=== PATIENT | male | born 1955 ===

== ENCOUNTER 2017-03-20 06:14 | Inpatient (IN) ==
[2017-03-20] MEDS ORDERED: GLUCAGON 1 MG VIAL IM PRN (07:41)
[2017-03-20] MEDS ORDERED: DEXTROSE 50% 25 GM/50 ML VIAL IV PRN (07:41)
[2017-03-20] MEDS ORDERED: SODIUM CHLORIDE 0.9% 1,000 ML IV PRN (07:50)
[2017-03-20] MEDS: LACTULOSE 20 GM/30 ML UDCUP PO SCH ×4 (08:07→20:49)
[2017-03-20] MEDS ORDERED: SODIUM BICARBONATE 50 MEQ/50 ML VIAL IV ONE ×2 (12:00→17:25)
[2017-03-20 12:08] LABS: PT Patient Result 10.1 SECS
[2017-03-20] MEDS ORDERED: SODIUM BICARB INJ 50 MEQ in DEXTROSE 5% 50 ML IV ONE (13:00)
[2017-03-20] MEDS ORDERED: POTASSIUM CHLORIDE 20 MEQ TABLET PO ONE (13:05)
[2017-03-20] MEDS ORDERED: ACETAMINOPHEN 325 MG TABLET PO PRN (13:07)
[2017-03-20] MEDS: PANTOPRAZOLE 40 MG TABLET PO SCH (13:30)
[2017-03-20] MEDS: CALCIUM (CARBONATE) 600 MG TABLET PO SCH ×2 (13:30→20:48)
[2017-03-20] MEDS ORDERED: PIPERACILLIN/TAZOBACTAM 3,375 MG in SODIUM CHLORIDE 0.9% 100 ML IV SCH (13:30)
[2017-03-20] MEDS: INSULIN LISPRO 100 UNIT/ML SUBCUT SCH ×3 (13:31→23:35)
[2017-03-20 14:07] LABS: Basophils % 0.1 % (0.0-0.8); Eosinophils % 0.1 % (0.00-10.9); Hematocrit 23.4 VOL% (42.0-52.0); Hemoglobin 7.4 GM/DL (14.0-18.0); Immature Granulocytes % 7.4 %; Immature Granulocytes Absolute 1.17 #; Lymphocytes # 0.8 10*3/uL (1.4-4.0); Mean Corpuscular HGB Conc 31.6 GM/DL (32-36); Mean Corpuscular Hemoglobin 34 PG (27-34); Mean Corpuscular Volume 105.9 FL (87-102); Mean Platelet Volume 12.2 FL (9.6-12.0); Monocytes # 0.5 10*3/uL (0.11-0.8); Monocytes % 3.2 % (1.7-12.7); NRBC # 0.33 10*3/uL; Neutrophils # 13.2 10*3/uL (1.4-7.4); Neutrophils % 84.2 % (38.7-73.9); Red Blood Count 2.21 MC/CUMM (3.8-5.5); Red Cell Distribution Width 14.7 % (9.3-17.3); White Blood Count 15.7 T/CUMM (4-12)
[2017-03-20 14:49] LABS: Albumin 3.7 G/DL (3.4-5.0); Bilirubin,Total 0.5 MG/DL (0.2-1.0); Osmolality,Calculated 317.2 MOS/KG (273-304); Total Protein 7.5 G/DL (6.4-8.3)
[2017-03-20 14:53] LABS: Calcium 5.6 MG/DL (8.5-10.1)
[2017-03-20 14:58] LABS: Platelet Count 44 T/CUMM (130-400)
[2017-03-20] MEDS ORDERED: INSULIN REGULAR 100 UNIT/ML IV ONE (15:03)
[2017-03-20] MEDS ORDERED: CALCIUM GLUCONATE 2,000 MG in SODIUM CHLORIDE 0.9% 100 ML IV ONE (15:03)
[2017-03-20] MEDS: SODIUM BICARBONATE 650 MG TABLET PO SCH ×2 (15:32→20:48)
[2017-03-20] MEDS: MIDODRINE 5 MG TABLET PO SCH ×2 (15:33→20:48)
[2017-03-20 16:08] LABS: ABG Base Excess -25.1 MMOL/L (-2.5-2.5); ABG HCO3 6.1 MMOL/L (20-26); ABG Oxygen Saturation 98.6 % (95-100); ABG TCO2 4.4 MMOL/L (23-27); Allen Test Positive
[2017-03-20 16:12] LABS: ABG PH 7.016 (7.35-7.45)
[2017-03-20 16:13] LABS: ABG PCO2 16.8 MM HG (35-48)
[2017-03-20] MEDS ORDERED: SODIUM POLYSTYRENE SULFATE 15 GM/60 ML BOTTLE PO STA (16:32)
[2017-03-20] MEDS ORDERED: SODIUM BICARB INJ 50 MEQ in DEXTROSE 5% 50 ML IV SCH (18:00)
[2017-03-20] MEDS: NEOMYCIN/POLYMYXIN/HC OTIC SOLN 10 ML BOTTLE BOTH EARS SCH (20:49)
[2017-03-20 21:30] LABS: Burr Cells 1+; Platelet Estimate Decreased; Poikilocytosis 1+
[2017-03-20] MEDS: INSULIN GLARGINE 100 UNIT/ML SUBCUT SCH (23:36)
[2017-03-21] MEDS ORDERED: SODIUM BICARB INJ 50 MEQ in DEXTROSE 5% 50 ML IV SCH
[2017-03-21] MEDS: LACTULOSE 20 GM/30 ML UDCUP PO SCH ×6 (00:19→23:53)
[2017-03-21] MEDS: PIPERACILLIN/TAZOBACTAM 3,375 MG in SODIUM CHLORIDE 0.9% 100 ML IV SCH ×2 (04:28→18:24)
[2017-03-21 06:21] LABS: Basophils % 0.1 % (0.0-0.8); Eosinophils % 0.1 % (0.00-10.9); Hematocrit 20.5 VOL% (42.0-52.0); Hemoglobin 6.9 GM/DL (14.0-18.0); Immature Granulocytes % 1.7 %; Immature Granulocytes Absolute 0.22 #; Lymphocytes # 0.7 10*3/uL (1.4-4.0); Lymphocytes % 5.2 % (21.2-54.2); Mean Corpuscular HGB Conc 33.7 GM/DL (32-36); Mean Corpuscular Hemoglobin 33 PG (27-34); Mean Corpuscular Volume 97.2 FL (87-102); Mean Platelet Volume 11.9 FL (9.6-12.0); Monocytes # 0.8 10*3/uL (0.11-0.8); Monocytes % 6.3 % (1.7-12.7); NRBC # 0.22 10*3/uL; Neutrophils # 11.2 10*3/uL (1.4-7.4); Neutrophils % 86.6 % (38.7-73.9); Platelet Count 58 T/CUMM (130-400); Red Blood Count 2.11 MC/CUMM (3.8-5.5); Red Cell Distribution Width 14.4 % (9.3-17.3); White Blood Count 12.9 T/CUMM (4-12)
[2017-03-21 06:46] LABS: Calcium 6.3 MG/DL (8.5-10.1); Magnesium 3.6 MG/DL (1.8-2.4); Osmolality,Calculated 320.1 MOS/KG (273-304); Potassium 4.4 MMOL/L (3.5-5.1)
[2017-03-21 06:50] LABS: Burr Cells Slight; Elliptocytes Few; Giant Platelets Few; Hypochromasia 1+; Platelet Estimate Decreased
[2017-03-21] MEDS: INSULIN LISPRO 100 UNIT/ML SUBCUT SCH ×4 (08:17→21:37)
[2017-03-21] MEDS: CALCIUM (CARBONATE) 600 MG TABLET PO SCH ×2 (08:40→23:54)
[2017-03-21] MEDS: SODIUM BICARBONATE 650 MG TABLET PO SCH ×3 (08:41→23:54)
[2017-03-21] MEDS: PANTOPRAZOLE 40 MG TABLET PO SCH (08:42)
[2017-03-21] MEDS: MIDODRINE 5 MG TABLET PO SCH ×3 (08:42→23:54)
[2017-03-21] MEDS: NEOMYCIN/POLYMYXIN/HC OTIC SOLN 10 ML BOTTLE BOTH EARS SCH ×2 (08:43→23:54)
[2017-03-21] MEDS ORDERED: LORazepam 2 MG/1 ML VIAL IM ONE (14:37)
[2017-03-21 15:58] LABS: Hematocrit 23.8 VOL% (42.0-52.0); Hemoglobin 8.5 GM/DL (14.0-18.0)
[2017-03-21 17:29] LABS: ABG Base Excess -3.4 MMOL/L (-2.5-2.5); ABG HCO3 19.8 MMOL/L (20-26); ABG Oxygen Saturation 97.1 % (95-100); ABG PH 7.452 (7.35-7.45); ABG PO2 99.3 MM HG (80-95); ABG TCO2 20.7 MMOL/L (23-27)
[2017-03-21 18:28] LABS: Calcium 7.4 MG/DL (8.5-10.1); Osmolality,Calculated 288.8 MOS/KG (273-304)
[2017-03-21] MEDS: INSULIN GLARGINE 100 UNIT/ML SUBCUT SCH (21:37)
[2017-03-22] MEDS: LACTULOSE 20 GM/30 ML UDCUP PO SCH ×5 (01:14→17:07)
[2017-03-22] MEDS: PIPERACILLIN/TAZOBACTAM 3,375 MG in SODIUM CHLORIDE 0.9% 100 ML IV SCH ×2 (03:58→17:07)
[2017-03-22] MEDS: ONDANSETRON 4 MG/2 ML VIAL IV PRN ×4 (04:21→17:18)
[2017-03-22 04:44] LABS: Basophils % 0.1 % (0.0-0.8); Hematocrit 22.5 VOL% (42.0-52.0); Hemoglobin 7.9 GM/DL (14.0-18.0); Immature Granulocytes % 0.9 %; Immature Granulocytes Absolute 0.08 #; Lymphocytes % 11.2 % (21.2-54.2); Mean Corpuscular HGB Conc 35.1 GM/DL (32-36); Mean Corpuscular Hemoglobin 32 PG (27-34); Mean Corpuscular Volume 91.8 FL (87-102); Mean Platelet Volume 12.1 FL (9.6-12.0); Monocytes # 0.9 10*3/uL (0.11-0.8); Monocytes % 9.7 % (1.7-12.7); NRBC # 0.05 10*3/uL; Neutrophils # 6.8 10*3/uL (1.4-7.4); Neutrophils % 78.1 % (38.7-73.9); Platelet Count 73 T/CUMM (130-400); Red Blood Count 2.45 MC/CUMM (3.8-5.5); Red Cell Distribution Width 15.9 % (9.3-17.3); White Blood Count 8.7 T/CUMM (4-12)
[2017-03-22 05:07] LABS: Calcium 6.9 MG/DL (8.5-10.1); Osmolality,Calculated 298.8 MOS/KG (273-304); Potassium 3.2 MMOL/L (3.5-5.1)
[2017-03-22] MEDS ORDERED: SODIUM CHLORIDE 0.9% 1,000 ML IV PRN (08:14)
[2017-03-22] MEDS: INSULIN LISPRO 100 UNIT/ML SUBCUT SCH ×3 (09:00→17:07)
[2017-03-22] MEDS: CALCIUM (CARBONATE) 600 MG TABLET PO SCH (09:00)
[2017-03-22] MEDS: MIDODRINE 5 MG TABLET PO SCH ×2 (09:01→16:12)
[2017-03-22] MEDS: PANTOPRAZOLE 40 MG TABLET PO SCH (09:01)
[2017-03-22] MEDS: NEOMYCIN/POLYMYXIN/HC OTIC SOLN 10 ML BOTTLE BOTH EARS SCH (09:01)
[2017-03-22] MEDS: SODIUM BICARBONATE 650 MG TABLET PO SCH ×2 (09:01→16:12)
[2017-03-22] MEDS ORDERED: HEPARIN LOCK FLUSH 500 UNIT/5 ML SYRINGE IV ONE (16:35)
[2017-03-22 16:54] VITALS: BP 157/70
== END 2017-03-22 18:55 | disposition home or self-care (01) | DRG 460 ==
LOC: N.EDINP 06:14 → N.ED 06:14 → SUATTDRO 07:23 → N.EDINP 09:57 → N.4E 10:18 → N.SDSINP 10:18
PROVIDERS: ADMIT Internal Medicine; ATTEND Internal Medicine

== ENCOUNTER 2017-11-29 06:05 | Inpatient (IN) ==
[2017-11-29 06:47] LABS: Hemoglobin 11.1 GM/DL (14.0-18.0)
[2017-11-29] MEDS ORDERED: INSULIN REGULAR 100 UNIT/ML SUBCUT ONE ×2 (07:18→15:58)
[2017-11-29] MEDS ORDERED: INSULIN REGULAR 100 UNIT/ML ONE (07:38)
[2017-11-29] MEDS: SODIUM CHLORIDE 0.9% 250 ML IV SCH ×2 (07:45→14:12)
[2017-11-29] MEDS ORDERED: SODIUM CHLORIDE 0.9% 75 ML IV ONE (10:15)
[2017-11-29] MEDS ORDERED: MIDODRINE 5 MG TABLET PO STA (10:55)
[2017-11-29] MEDS ORDERED: SODIUM CHLORIDE 0.9% 500 ML IV ONE (11:29)
[2017-11-29] MEDS ORDERED: GLUCAGON 1 MG VIAL IM PRN (11:35)
[2017-11-29] MEDS ORDERED: DOCUSATE SODIUM 100 MG CAPSULE PO PRN (11:35)
[2017-11-29] MEDS ORDERED: ONDANSETRON 4 MG/2 ML VIAL IV PRN (11:35)
[2017-11-29] MEDS ORDERED: DEXTROSE 50% 25 GM/50 ML VIAL IV PRN (11:35)
[2017-11-29] MEDS: SEVELAMER CARBONATE 800 MG TABLET PO SCH ×2 (12:08→16:26)
[2017-11-29 12:29] LABS: Basophils # 0.1 10*3/uL (0.0-0.2); Basophils % 0.6 % (0.0-0.8); Eosinophils # 0.1 10*3/uL (0.0-0.87); Eosinophils % 1.1 % (0.00-10.9); Hematocrit 31.2 VOL% (42.0-52.0); Immature Granulocytes % 0.7 %; Immature Granulocytes Absolute 0.07 #; Lymphocytes # 1.9 10*3/uL (1.4-4.0); Lymphocytes % 19.4 % (21.2-54.2); Mean Corpuscular HGB Conc 32.1 GM/DL (32-36); Mean Corpuscular Hemoglobin 31 PG (27-34); Mean Corpuscular Volume 97.8 FL (87-102); Mean Platelet Volume 9.9 FL (9.6-12.0); Monocytes # 0.6 10*3/uL (0.11-0.8); Neutrophils # 6.9 10*3/uL (1.4-7.4); Neutrophils % 72.2 % (38.7-73.9); Platelet Count 362 T/CUMM (130-400); Red Blood Count 3.19 MC/CUMM (3.8-5.5); Red Cell Distribution Width 13.8 % (9.3-17.3); White Blood Count 9.6 T/CUMM (4-12)
[2017-11-29 12:51] LABS: Bilirubin,Total 0.4 MG/DL (0.2-1.0); Calcium 8.5 MG/DL (8.5-10.1); Osmolality,Calculated 288.9 MOS/KG (273-304); Potassium 4.7 MMOL/L (3.5-5.1); Total Protein 8.7 G/DL (6.4-8.3)
[2017-11-29] MEDS: ACETAMINOPHEN 325 MG TABLET PO PRN (13:51)
[2017-11-29] MEDS: MIDODRINE 5 MG TABLET PO SCH ×2 (15:36→20:33)
[2017-11-29] MEDS: INSULIN REGULAR 100 UNIT/ML SUBCUT SCH ×2 (15:36→20:28)
[2017-11-29] MEDS ORDERED: SODIUM BICARBONATE 50 MEQ/50 ML SYRINGE IV ONE (15:55)
[2017-11-29] MEDS: SODIUM BICARBONATE 650 MG TABLET PO SCH ×2 (16:26→20:33)
[2017-11-29] MEDS: INSULIN GLARGINE 100 UNIT/ML SUBCUT SCH (20:29)
[2017-11-30 04:48] LABS: Basophils # 0.1 10*3/uL (0.0-0.2); Basophils % 0.7 % (0.0-0.8); Eosinophils # 0.1 10*3/uL (0.0-0.87); Eosinophils % 1.2 % (0.00-10.9); Hematocrit 32.3 VOL% (42.0-52.0); Hemoglobin 10.4 GM/DL (14.0-18.0); Immature Granulocytes % 0.6 %; Immature Granulocytes Absolute 0.06 #; Lymphocytes # 2.5 10*3/uL (1.4-4.0); Lymphocytes % 23.4 % (21.2-54.2); Mean Corpuscular HGB Conc 32.2 GM/DL (32-36); Mean Corpuscular Hemoglobin 31 PG (27-34); Mean Corpuscular Volume 95.3 FL (87-102); Mean Platelet Volume 10.6 FL (9.6-12.0); Monocytes # 0.6 10*3/uL (0.11-0.8); Monocytes % 5.2 % (1.7-12.7); Neutrophils # 7.2 10*3/uL (1.4-7.4); Neutrophils % 68.9 % (38.7-73.9); Platelet Count 400 T/CUMM (130-400); Red Blood Count 3.39 MC/CUMM (3.8-5.5); White Blood Count 10.5 T/CUMM (4-12)
[2017-11-30 05:11] LABS: Albumin 3.3 G/DL (3.4-5.0); Bilirubin,Total 0.6 MG/DL (0.2-1.0); Osmolality,Calculated 290.7 MOS/KG (273-304); Potassium 4.8 MMOL/L (3.5-5.1); Total Protein 9.2 G/DL (6.4-8.3)
[2017-11-30] MEDS ORDERED: ceFAZolin 1,000 MG in SYRINGE 1 EACH IV ONE (06:30)
[2017-11-30] MEDS: ACETAMINOPHEN 325 MG TABLET PO PRN ×3 (08:11→20:21)
[2017-11-30] MEDS: MIDODRINE 5 MG TABLET PO SCH ×3 (08:11→20:21)
[2017-11-30] MEDS: INSULIN REGULAR 100 UNIT/ML SUBCUT SCH ×4 (09:32→20:23)
[2017-11-30] MEDS: SEVELAMER CARBONATE 800 MG TABLET PO SCH ×3 (09:32→16:12)
[2017-11-30] MEDS: INSULIN NPH 100 UNIT/ML SUBCUT SCH ×3 (09:32→16:12)
[2017-11-30] MEDS ORDERED: HEPARIN 5,000 UNIT/1 ML VIAL ONE (09:40)
[2017-11-30] MEDS ORDERED: BUPIVACAINE 0.25% /EPI 10 ML VIAL ONE (09:40)
[2017-11-30] MEDS ORDERED: LIDOCAINE 1%/EPI INJ 20 ML VIAL ONE (09:41)
[2017-11-30] MEDS ORDERED: PROPOFOL 200 MG/20 ML VIAL IV ONE (12:50)
[2017-11-30] MEDS ORDERED: fentaNYL 100 MCG/2 ML VIAL ONE (12:50)
[2017-11-30] MEDS ORDERED: KETAMINE 500 MG/10 ML VIAL ONE (12:51)
[2017-11-30] MEDS ORDERED: SODIUM CHLORIDE 0.9% 250 ML IV ONE (12:51)
[2017-11-30] MEDS ORDERED: MIDAZOLAM 2 MG/2 ML VIAL ONE (12:52)
[2017-11-30] MEDS: PANTOPRAZOLE 40 MG TABLET PO SCH (16:12)
[2017-11-30] MEDS: SODIUM BICARBONATE 650 MG TABLET PO SCH ×2 (16:12→20:21)
[2017-11-30] MEDS ORDERED: HYDROCORTISONE 100 MG VIAL IV ONE (16:29)
[2017-11-30] MEDS: INSULIN GLARGINE 100 UNIT/ML SUBCUT SCH (20:24)
[2017-12-01] MEDS: ACETAMINOPHEN 325 MG TABLET PO PRN ×3 (00:22→16:44)
[2017-12-01] MEDS: HYDROCORTISONE 100 MG VIAL IV SCH ×3 (00:24→16:42)
[2017-12-01] MEDS: MIDODRINE 5 MG TABLET PO SCH ×4 (02:21→21:26)
[2017-12-01 05:34] LABS: Basophils % 0.1 % (0.0-0.8); Hematocrit 28.3 VOL% (42.0-52.0); Hemoglobin 8.9 GM/DL (14.0-18.0); Immature Granulocytes % 0.7 %; Lymphocytes # 1.3 10*3/uL (1.4-4.0); Lymphocytes % 8.3 % (21.2-54.2); Mean Corpuscular HGB Conc 31.4 GM/DL (32-36); Mean Corpuscular Hemoglobin 31 PG (27-34); Mean Corpuscular Volume 98.3 FL (87-102); Mean Platelet Volume 10.7 FL (9.6-12.0); Monocytes # 0.1 10*3/uL (0.11-0.8); Monocytes % 0.9 % (1.7-12.7); Neutrophils # 13.7 10*3/uL (1.4-7.4); Platelet Count 338 T/CUMM (130-400); Red Blood Count 2.88 MC/CUMM (3.8-5.5); Red Cell Distribution Width 13.8 % (9.3-17.3); White Blood Count 15.2 T/CUMM (4-12)
[2017-12-01 05:58] LABS: Albumin 3.2 G/DL (3.4-5.0); Bilirubin,Total 0.7 MG/DL (0.2-1.0); Calcium 8.5 MG/DL (8.5-10.1); Osmolality,Calculated 293.5 MOS/KG (273-304); Potassium 4.4 MMOL/L (3.5-5.1); Total Protein 8.6 G/DL (6.4-8.3)
[2017-12-01] MEDS: INSULIN REGULAR 100 UNIT/ML SUBCUT SCH ×4 (08:53→21:26)
[2017-12-01] MEDS: SEVELAMER CARBONATE 800 MG TABLET PO SCH ×3 (08:54→16:42)
[2017-12-01] MEDS: INSULIN NPH 100 UNIT/ML SUBCUT SCH ×3 (08:54→16:41)
[2017-12-01] MEDS: PANTOPRAZOLE 40 MG TABLET PO SCH (08:55)
[2017-12-01] MEDS: SODIUM BICARBONATE 650 MG TABLET PO SCH ×2 (08:55→21:26)
[2017-12-01] MEDS ORDERED: SODIUM CHLORIDE 0.9% 250 ML IV ONE (15:25)
[2017-12-01] MEDS: INSULIN GLARGINE 100 UNIT/ML SUBCUT SCH (21:27)
[2017-12-02] MEDS: HYDROCORTISONE 100 MG VIAL IV SCH ×3 (02:02→15:19)
[2017-12-02] MEDS: MIDODRINE 5 MG TABLET PO SCH ×4 (02:02→21:17)
[2017-12-02 03:58] LABS: Basophils % 0.2 % (0.0-0.8); Eosinophils % 0.1 % (0.00-10.9); Hematocrit 26.9 VOL% (42.0-52.0); Hemoglobin 8.7 GM/DL (14.0-18.0); Immature Granulocytes % 0.9 %; Immature Granulocytes Absolute 0.13 #; Lymphocytes # 2.6 10*3/uL (1.4-4.0); Lymphocytes % 18.4 % (21.2-54.2); Mean Corpuscular HGB Conc 32.3 GM/DL (32-36); Mean Corpuscular Hemoglobin 31 PG (27-34); Mean Corpuscular Volume 94.7 FL (87-102); Mean Platelet Volume 10.6 FL (9.6-12.0); Monocytes # 0.9 10*3/uL (0.11-0.8); Monocytes % 6.3 % (1.7-12.7); Neutrophils # 10.3 10*3/uL (1.4-7.4); Neutrophils % 74.1 % (38.7-73.9); Platelet Count 280 T/CUMM (130-400); Red Blood Count 2.84 MC/CUMM (3.8-5.5); Red Cell Distribution Width 14.2 % (9.3-17.3); White Blood Count 13.9 T/CUMM (4-12)
[2017-12-02 04:22] LABS: Calcium 8.2 MG/DL (8.5-10.1); Osmolality,Calculated 289.7 MOS/KG (273-304); Potassium 3.5 MMOL/L (3.5-5.1)
[2017-12-02] MEDS: INSULIN NPH 100 UNIT/ML SUBCUT SCH ×3 (07:51→17:01)
[2017-12-02] MEDS: INSULIN REGULAR 100 UNIT/ML SUBCUT SCH ×4 (07:51→21:17)
[2017-12-02] MEDS: PANTOPRAZOLE 40 MG TABLET PO SCH (08:33)
[2017-12-02] MEDS: SODIUM BICARBONATE 650 MG TABLET PO SCH ×2 (08:33→21:16)
[2017-12-02] MEDS: SEVELAMER CARBONATE 800 MG TABLET PO SCH ×3 (08:33→17:01)
[2017-12-02] MEDS: ACETAMINOPHEN 325 MG TABLET PO PRN ×3 (10:17→21:16)
[2017-12-02] MEDS: INSULIN GLARGINE 100 UNIT/ML SUBCUT SCH (21:17)
[2017-12-03] MEDS: ACETAMINOPHEN 325 MG TABLET PO PRN ×4 (00:28→21:03)
[2017-12-03] MEDS: HYDROCORTISONE 100 MG VIAL IV SCH ×4 (00:28→21:04)
[2017-12-03] MEDS: MIDODRINE 5 MG TABLET PO SCH ×4 (01:55→21:03)
[2017-12-03 07:04] LABS: Basophils % 0.1 % (0.0-0.8); Eosinophils % 0.1 % (0.00-10.9); Hematocrit 25.3 VOL% (42.0-52.0); Hemoglobin 8.1 GM/DL (14.0-18.0); Immature Granulocytes % 0.7 %; Lymphocytes # 1.4 10*3/uL (1.4-4.0); Lymphocytes % 9.7 % (21.2-54.2); Mean Corpuscular Hemoglobin 30 PG (27-34); Mean Corpuscular Volume 94.8 FL (87-102); Mean Platelet Volume 10.6 FL (9.6-12.0); Monocytes # 0.4 10*3/uL (0.11-0.8); Neutrophils # 12.8 10*3/uL (1.4-7.4); Neutrophils % 86.4 % (38.7-73.9); Platelet Count 323 T/CUMM (130-400); Red Blood Count 2.67 MC/CUMM (3.8-5.5); Red Cell Distribution Width 14.1 % (9.3-17.3); White Blood Count 14.8 T/CUMM (4-12)
[2017-12-03 07:17] LABS: Calcium 8.2 MG/DL (8.5-10.1); Potassium 3.6 MMOL/L (3.5-5.1)
[2017-12-03] MEDS: SODIUM BICARBONATE 650 MG TABLET PO SCH ×2 (08:14→21:03)
[2017-12-03] MEDS: PANTOPRAZOLE 40 MG TABLET PO SCH (08:14)
[2017-12-03] MEDS: SEVELAMER CARBONATE 800 MG TABLET PO SCH ×3 (08:14→16:42)
[2017-12-03] MEDS: INSULIN REGULAR 100 UNIT/ML SUBCUT SCH ×4 (08:22→21:03)
[2017-12-03] MEDS: INSULIN NPH 100 UNIT/ML SUBCUT SCH ×3 (08:22→16:43)
[2017-12-03] MEDS: INSULIN GLARGINE 100 UNIT/ML SUBCUT SCH (21:03)
[2017-12-04] MEDS: MIDODRINE 5 MG TABLET PO SCH ×2 (01:57→08:35)
[2017-12-04] MEDS: SODIUM BICARBONATE 650 MG TABLET PO SCH (08:35)
[2017-12-04] MEDS: SEVELAMER CARBONATE 800 MG TABLET PO SCH ×2 (08:35→13:55)
[2017-12-04] MEDS: ACETAMINOPHEN 325 MG TABLET PO PRN (08:36)
[2017-12-04] MEDS: INSULIN NPH 100 UNIT/ML SUBCUT SCH ×2 (08:36→12:43)
[2017-12-04] MEDS: PANTOPRAZOLE 40 MG TABLET PO SCH (08:36)
[2017-12-04] MEDS: HYDROCORTISONE 100 MG VIAL IV SCH (08:36)
[2017-12-04] MEDS: INSULIN REGULAR 100 UNIT/ML SUBCUT SCH ×2 (08:40→12:43)
[2017-12-04 12:00] VITALS: BP 116/60
== END 2017-12-04 14:43 | disposition home or self-care (01) | DRG 182 ==
LOC: N.OR 06:05 → N.SDSINP 06:10 → SUATTDRO 11:10 → N.CC 11:44 → N.2E 12-02 18:26
PROVIDERS: ADMIT Surgery; ATTEND Internal Medicine

== ENCOUNTER 2017-12-22 17:29 | Inpatient (IN) ==
[2017-12-22] MEDS ORDERED: GLUCAGON 1 MG VIAL IM PRN (18:22)
[2017-12-22] MEDS ORDERED: DEXTROSE 50% 25 GM/50 ML VIAL IV PRN (18:22)
[2017-12-22] MEDS ORDERED: ONDANSETRON 4 MG/2 ML VIAL IV PRN (18:22)
[2017-12-22] MEDS ORDERED: MORPHINE 4 MG/1 ML VIAL IV PRN (18:22)
[2017-12-22] MEDS ORDERED: SODIUM CHLORIDE 0.9% 1,000 ML IV SCH (18:30)
[2017-12-22 19:18] LABS: Basophils # 0.1 10*3/uL (0.0-0.2); Basophils % 0.2 % (0.0-0.8); Eosinophils # 0.1 10*3/uL (0.0-0.87); Eosinophils % 0.4 % (0.00-10.9); Hematocrit 22.5 VOL% (42.0-52.0); Hemoglobin 7.5 GM/DL (14.0-18.0); Immature Granulocytes % 2.1 %; Immature Granulocytes Absolute 0.62 #; Lymphocytes # 1.2 10*3/uL (1.4-4.0); Lymphocytes % 3.9 % (21.2-54.2); Mean Corpuscular HGB Conc 33.3 GM/DL (32-36); Mean Corpuscular Hemoglobin 31 PG (27-34); Mean Corpuscular Volume 93.8 FL (87-102); Mean Platelet Volume 10.7 FL (9.6-12.0); Monocytes # 1.4 10*3/uL (0.11-0.8); Monocytes % 4.6 % (1.7-12.7); NRBC # 0.05 10*3/uL; Neutrophils # 26.8 10*3/uL (1.4-7.4); Neutrophils % 88.8 % (38.7-73.9); Platelet Count 426 T/CUMM (130-400); Red Cell Distribution Width 13.4 % (9.3-17.3); White Blood Count 30.2 T/CUMM (4-12)
[2017-12-22 19:34] LABS: Alanine Aminotransferase < 9 U/L (16-61); Albumin 2.4 G/DL (3.4-5.0); Alkaline Phosphatase 171 U/L (45-117); Aspartate Amino Transferase 4 U/L (0-37); Blood Urea Nitrogen 59 MG/DL (7-18); Calcium 8.2 MG/DL (8.5-10.1); Glucose 177 MG/DL (74-106); Osmolality,Calculated 277.1 MOS/KG (273-304); Potassium 3.5 MMOL/L (3.5-5.1); Sodium 128 MMOL/L (136-145)
[2017-12-22 19:43] LABS: INR 1.1; PT Patient Result 11.2 SECS
[2017-12-22 19:53] LABS: Band Neutrophils 1 % (0-10); Lymphocytes 1 % (20-55); Segmented Neutrophils 96 % (50-85); Total Cells Counted 100
[2017-12-22 19:54] LABS: Anisocytosis 1+; Macrocytosis 1+; Platelet Estimate Adequate; Polychromasia Slight
[2017-12-22] MEDS ORDERED: VANCOMYCIN INJ 500 MG in SODIUM CHLORIDE 0.9% 100 ML IV PRN (20:38)
[2017-12-22] MEDS ORDERED: VANCOMYCIN INJ 1,250 MG in SODIUM CHLORIDE 0.9% 250 ML IV ONE (21:00)
[2017-12-22] MEDS: INSULIN LISPRO 100 UNIT/ML SUBCUT SCH (22:10)
[2017-12-22] MEDS: ENOXAPARIN 30 MG/0.3 ML SYRINGE SUBCUT SCH (22:13)
[2017-12-23 06:13] LABS: Osmolality,Calculated 283.1 MOS/KG (273-304); Potassium 3.5 MMOL/L (3.5-5.1); Risk Ratio 3.7; VLDL CHOLESTEROL 22.6 MG/DL
[2017-12-23 06:26] LABS: Basophils % 0.1 % (0.0-0.8); Eosinophils # 0.2 10*3/uL (0.0-0.87); Eosinophils % 0.6 % (0.00-10.9); Hematocrit 20.5 VOL% (42.0-52.0); Hemoglobin 6.6 GM/DL (14.0-18.0); Immature Granulocytes % 1.4 %; Immature Granulocytes Absolute 0.35 #; Lymphocytes # 1.4 10*3/uL (1.4-4.0); Lymphocytes % 5.7 % (21.2-54.2); Mean Corpuscular HGB Conc 32.2 GM/DL (32-36); Mean Corpuscular Hemoglobin 31 PG (27-34); Mean Corpuscular Volume 95.3 FL (87-102); Mean Platelet Volume 10.3 FL (9.6-12.0); Monocytes % 3.8 % (1.7-12.7); NRBC # 0.08 10*3/uL; Neutrophils # 22.5 10*3/uL (1.4-7.4); Neutrophils % 88.4 % (38.7-73.9); Platelet Count 424 T/CUMM (130-400); Red Blood Count 2.15 MC/CUMM (3.8-5.5); Red Cell Distribution Width 13.6 % (9.3-17.3); White Blood Count 25.4 T/CUMM (4-12)
[2017-12-23 06:45] LABS: Eosinophils 1 % (0-10); Hypochromasia 1+; Lymphocytes 2 % (20-55); Ovalocytes Slight; Platelet Estimate Adequate; Segmented Neutrophils 95 % (50-85); Total Cells Counted 100
[2017-12-23 06:46] LABS: Macrocytosis Slight; Polychromasia Slight
[2017-12-23] MEDS: INSULIN LISPRO 100 UNIT/ML SUBCUT SCH ×4 (07:52→20:41)
[2017-12-23] MEDS: PANTOPRAZOLE 40 MG TABLET PO SCH (08:18)
[2017-12-23] MEDS ORDERED: SODIUM CHLORIDE 0.9% 1,000 ML IV PRN (10:42)
[2017-12-23] MEDS ORDERED: BUPIVACAINE MPF 0.25% 30 ML VIAL ONE (11:44)
[2017-12-23] MEDS ORDERED: GLUCAGON 1 MG VIAL IM PRN (13:25)
[2017-12-23] MEDS ORDERED: DEXTROSE 50% 25 GM/50 ML VIAL IV PRN (13:25)
[2017-12-23] MEDS ORDERED: MORPHINE 4 MG/1 ML VIAL IV PRN ×2 (13:27→13:32)
[2017-12-23] MEDS ORDERED: PROPOFOL 200 MG/20 ML VIAL IV ONE (13:43)
[2017-12-23] MEDS ORDERED: SEVOFLURANE 1 UNIT/15 MINUTE INH ONE (13:44)
[2017-12-23] MEDS ORDERED: DEXAMETHASONE 10 MG/1 ML VIAL ONE (13:44)
[2017-12-23] MEDS ORDERED: fentaNYL 100 MCG/2 ML VIAL ONE (13:44)
[2017-12-23] MEDS ORDERED: MIDAZOLAM 2 MG/2 ML VIAL ONE (13:44)
[2017-12-23] MEDS ORDERED: ONDANSETRON 4 MG/2 ML VIAL ONE (13:45)
[2017-12-23] MEDS ORDERED: PHENYLEPHRINE 1 MG/10 ML SYRINGE IV ONE (13:45)
[2017-12-23] MEDS ORDERED: SODIUM CHLORIDE 0.9% 500 ML IV ONE (13:45)
[2017-12-23] MEDS ORDERED: KETOROLAC 30 MG/1 ML VIAL ONE (13:45)
[2017-12-23] MEDS ORDERED: ETOMIDATE 40 MG/20 ML VIAL IV ONE (13:48)
[2017-12-23] MEDS: AMPICILLIN/SULBACTAM 1,500 MG in SODIUM CHLORIDE 0.9% 100 ML IV SCH ×2 (14:34→22:10)
[2017-12-23] MEDS: MIDODRINE 5 MG TABLET PO SCH ×2 (14:34→19:05)
[2017-12-23] MEDS ORDERED: INSULIN REGULAR 100 UNIT/ML SUBCUT SCH (16:30)
[2017-12-23] MEDS ORDERED: INSULIN NPH 100 UNIT/ML SUBCUT SCH (16:30)
[2017-12-23] MEDS: SEVELAMER CARBONATE 800 MG TABLET PO SCH (16:37)
[2017-12-23] MEDS: oxyCODONE/ACETAMINOPHEN 5-325 MG TABLET PO PRN (17:04)
[2017-12-23] MEDS: INSULIN GLARGINE 100 UNIT/ML SUBCUT SCH (20:42)
[2017-12-23] MEDS: ENOXAPARIN 30 MG/0.3 ML SYRINGE SUBCUT SCH (20:42)
[2017-12-23] MEDS: SODIUM BICARBONATE 650 MG TABLET PO SCH (20:43)
[2017-12-23] MEDS: DOCUSATE SODIUM 100 MG CAPSULE PO SCH (20:44)
[2017-12-23] MEDS: NEOMYCIN/POLYMYXIN/HC OTIC SOLN 10 ML BOTTLE BOTH EARS SCH (20:44)
[2017-12-24] MEDS: MIDODRINE 5 MG TABLET PO SCH ×5 (00:15→23:44)
[2017-12-24] MEDS: oxyCODONE/ACETAMINOPHEN 5-325 MG TABLET PO PRN ×3 (00:15→23:44)
[2017-12-24] MEDS: AMPICILLIN/SULBACTAM 1,500 MG in SODIUM CHLORIDE 0.9% 100 ML IV SCH ×3 (06:20→20:31)
[2017-12-24 06:53] LABS: Basophils # 0.1 10*3/uL (0.0-0.2); Basophils % 0.2 % (0.0-0.8); Hematocrit 30.8 VOL% (42.0-52.0); Hemoglobin 9.9 GM/DL (14.0-18.0); Immature Granulocytes % 1.7 %; Immature Granulocytes Absolute 0.56 #; Lymphocytes # 0.9 10*3/uL (1.4-4.0); Lymphocytes % 2.7 % (21.2-54.2); Mean Corpuscular HGB Conc 32.1 GM/DL (32-36); Mean Corpuscular Hemoglobin 29 PG (27-34); Mean Platelet Volume 10.8 FL (9.6-12.0); Monocytes # 0.4 10*3/uL (0.11-0.8); Monocytes % 1.2 % (1.7-12.7); NRBC # 0.06 10*3/uL; Neutrophils # 30.8 10*3/uL (1.4-7.4); Neutrophils % 94.2 % (38.7-73.9); Platelet Count 494 T/CUMM (130-400); Red Blood Count 3.46 MC/CUMM (3.8-5.5); Red Cell Distribution Width 17.1 % (9.3-17.3); White Blood Count 32.7 T/CUMM (4-12)
[2017-12-24 07:11] LABS: Calcium 8.7 MG/DL (8.5-10.1); Osmolality,Calculated 293.5 MOS/KG (273-304); Potassium 3.9 MMOL/L (3.5-5.1)
[2017-12-24 07:15] LABS: Anisocytosis 1+; Band Neutrophils 14 % (0-10); Lymphocytes 6 % (20-55); Nucleated Red Blood Cells 1 (0-5); Platelet Estimate Increased; Segmented Neutrophils 78 % (50-85); Total Cells Counted 100
[2017-12-24 07:16] LABS: Macrocytosis 1+; Poikilocytosis Slight
[2017-12-24] MEDS: SEVELAMER CARBONATE 800 MG TABLET PO SCH ×3 (09:24→17:31)
[2017-12-24] MEDS: DOCUSATE SODIUM 100 MG CAPSULE PO SCH ×2 (09:24→20:33)
[2017-12-24] MEDS: INSULIN LISPRO 100 UNIT/ML SUBCUT SCH ×4 (09:24→20:32)
[2017-12-24] MEDS: SODIUM BICARBONATE 650 MG TABLET PO SCH ×2 (09:25→20:33)
[2017-12-24] MEDS: PANTOPRAZOLE 40 MG TABLET PO SCH (09:25)
[2017-12-24] MEDS: NEOMYCIN/POLYMYXIN/HC OTIC SOLN 10 ML BOTTLE BOTH EARS SCH ×3 (09:25→20:37)
[2017-12-24] MEDS ORDERED: VANCOMYCIN INJ 500 MG in SODIUM CHLORIDE 0.9% 100 ML IV ONE (18:00)
[2017-12-24] MEDS: INSULIN GLARGINE 100 UNIT/ML SUBCUT SCH (20:32)
[2017-12-24] MEDS: ENOXAPARIN 30 MG/0.3 ML SYRINGE SUBCUT SCH (20:33)
[2017-12-25] MEDS: AMPICILLIN/SULBACTAM 1,500 MG in SODIUM CHLORIDE 0.9% 100 ML IV SCH (05:35)
[2017-12-25] MEDS: oxyCODONE/ACETAMINOPHEN 5-325 MG TABLET PO PRN ×3 (05:41→23:43)
[2017-12-25 05:59] LABS: Basophils % 0.1 % (0.0-0.8); Hematocrit 27.7 VOL% (42.0-52.0); Hemoglobin 8.9 GM/DL (14.0-18.0); Immature Granulocytes % 1.9 %; Immature Granulocytes Absolute 0.47 #; Lymphocytes # 1.3 10*3/uL (1.4-4.0); Mean Corpuscular HGB Conc 32.1 GM/DL (32-36); Mean Corpuscular Hemoglobin 29 PG (27-34); Mean Corpuscular Volume 89.9 FL (87-102); Mean Platelet Volume 10.8 FL (9.6-12.0); Monocytes # 0.9 10*3/uL (0.11-0.8); Monocytes % 3.5 % (1.7-12.7); NRBC # 0.07 10*3/uL; Neutrophils # 22.7 10*3/uL (1.4-7.4); Neutrophils % 89.5 % (38.7-73.9); Platelet Count 429 T/CUMM (130-400); Red Blood Count 3.08 MC/CUMM (3.8-5.5); Red Cell Distribution Width 17.2 % (9.3-17.3); White Blood Count 25.3 T/CUMM (4-12)
[2017-12-25 06:22] LABS: Anisocytosis 1+; Band Neutrophils 6 % (0-10); Lymphocytes 8 % (20-55); Macrocytosis 1+; Platelet Estimate Normal; Polychromasia Slight; Segmented Neutrophils 81 % (50-85); Total Cells Counted 100
[2017-12-25 06:29] LABS: Calcium 8.2 MG/DL (8.5-10.1); Potassium 3.5 MMOL/L (3.5-5.1)
[2017-12-25] MEDS: MIDODRINE 5 MG TABLET PO SCH ×4 (06:40→23:42)
[2017-12-25] MEDS: NEOMYCIN/POLYMYXIN/HC OTIC SOLN 10 ML BOTTLE BOTH EARS SCH ×3 (08:53→21:11)
[2017-12-25] MEDS: PANTOPRAZOLE 40 MG TABLET PO SCH (08:53)
[2017-12-25] MEDS: SEVELAMER CARBONATE 800 MG TABLET PO SCH ×3 (08:53→16:40)
[2017-12-25] MEDS: DOCUSATE SODIUM 100 MG CAPSULE PO SCH ×2 (08:53→21:06)
[2017-12-25] MEDS: SODIUM BICARBONATE 650 MG TABLET PO SCH ×2 (08:53→21:06)
[2017-12-25] MEDS: INSULIN LISPRO 100 UNIT/ML SUBCUT SCH ×4 (08:53→21:07)
[2017-12-25] MEDS: ENOXAPARIN 30 MG/0.3 ML SYRINGE SUBCUT SCH (21:06)
[2017-12-25] MEDS: INSULIN GLARGINE 100 UNIT/ML SUBCUT SCH (21:07)
[2017-12-25] MEDS: MORPHINE 4 MG/1 ML VIAL IV PRN (21:08)
[2017-12-26] MEDS: MIDODRINE 5 MG TABLET PO SCH ×3 (05:55→18:30)
[2017-12-26] MEDS: INSULIN LISPRO 100 UNIT/ML SUBCUT SCH ×4 (06:59→20:43)
[2017-12-26] MEDS: DOCUSATE SODIUM 100 MG CAPSULE PO SCH ×2 (08:27→21:20)
[2017-12-26] MEDS: SEVELAMER CARBONATE 800 MG TABLET PO SCH ×3 (08:27→17:02)
[2017-12-26] MEDS: SODIUM BICARBONATE 650 MG TABLET PO SCH ×2 (08:28→21:20)
[2017-12-26] MEDS: PANTOPRAZOLE 40 MG TABLET PO SCH (08:28)
[2017-12-26] MEDS: NEOMYCIN/POLYMYXIN/HC OTIC SOLN 10 ML BOTTLE BOTH EARS SCH ×3 (08:28→21:21)
[2017-12-26] MEDS: oxyCODONE/ACETAMINOPHEN 5-325 MG TABLET PO PRN (14:14)
[2017-12-26] MEDS: INSULIN GLARGINE 100 UNIT/ML SUBCUT SCH (20:43)
[2017-12-26] MEDS: ENOXAPARIN 30 MG/0.3 ML SYRINGE SUBCUT SCH (21:20)
[2017-12-27] MEDS: MIDODRINE 5 MG TABLET PO SCH ×4 (00:09→17:30)
[2017-12-27] MEDS: ACETAMINOPHEN 325 MG TABLET PO PRN ×2 (01:37→08:14)
[2017-12-27 06:40] LABS: Basophils % 0.2 % (0.0-0.8); Eosinophils # 0.1 10*3/uL (0.0-0.87); Eosinophils % 0.6 % (0.00-10.9); Hematocrit 25.9 VOL% (42.0-52.0); Hemoglobin 8.2 GM/DL (14.0-18.0); Immature Granulocytes % 1.9 %; Immature Granulocytes Absolute 0.43 #; Lymphocytes # 1.7 10*3/uL (1.4-4.0); Lymphocytes % 7.2 % (21.2-54.2); Mean Corpuscular HGB Conc 31.7 GM/DL (32-36); Mean Corpuscular Hemoglobin 30 PG (27-34); Mean Corpuscular Volume 93.2 FL (87-102); Mean Platelet Volume 10.8 FL (9.6-12.0); Monocytes # 0.7 10*3/uL (0.11-0.8); Monocytes % 2.9 % (1.7-12.7); NRBC # 0.03 10*3/uL; Neutrophils # 20.1 10*3/uL (1.4-7.4); Neutrophils % 87.2 % (38.7-73.9); Platelet Count 419 T/CUMM (130-400); Red Blood Count 2.78 MC/CUMM (3.8-5.5); Red Cell Distribution Width 17.3 % (9.3-17.3)
[2017-12-27 07:11] LABS: Albumin 1.8 G/DL (3.4-5.0); Bilirubin,Total 0.5 MG/DL (0.2-1.0); Calcium 7.6 MG/DL (8.5-10.1); Osmolality,Calculated 286.4 MOS/KG (273-304); Potassium 4.5 MMOL/L (3.5-5.1); Total Protein 6.8 G/DL (6.4-8.3)
[2017-12-27 07:17] LABS: Eosinophils 2 % (0-10); Hypochromasia 1+; Lymphocytes 9 % (20-55); Macrocytosis Slight; Ovalocytes Slight; Platelet Estimate Adequate; Segmented Neutrophils 86 % (50-85); Total Cells Counted 100
[2017-12-27] MEDS: INSULIN LISPRO 100 UNIT/ML SUBCUT SCH ×4 (08:07→20:56)
[2017-12-27] MEDS: DOCUSATE SODIUM 100 MG CAPSULE PO SCH ×2 (08:14→20:51)
[2017-12-27] MEDS: SEVELAMER CARBONATE 800 MG TABLET PO SCH ×3 (08:14→17:10)
[2017-12-27] MEDS: SODIUM BICARBONATE 650 MG TABLET PO SCH ×2 (08:14→20:51)
[2017-12-27] MEDS: PANTOPRAZOLE 40 MG TABLET PO SCH (08:14)
[2017-12-27] MEDS: NEOMYCIN/POLYMYXIN/HC OTIC SOLN 10 ML BOTTLE BOTH EARS SCH ×3 (08:17→20:56)
[2017-12-27] MEDS: oxyCODONE/ACETAMINOPHEN 5-325 MG TABLET PO PRN ×2 (13:03→20:51)
[2017-12-27] MEDS ORDERED: VANCOMYCIN INJ 500 MG in SODIUM CHLORIDE 0.9% 100 ML IV ONE (16:00)
[2017-12-27] MEDS: PIPERACILLIN/TAZOBACTAM 3,375 MG in SODIUM CHLORIDE 0.9% 100 ML IV SCH (17:44)
[2017-12-27] MEDS: ENOXAPARIN 30 MG/0.3 ML SYRINGE SUBCUT SCH (20:51)
[2017-12-27] MEDS: INSULIN GLARGINE 100 UNIT/ML SUBCUT SCH (20:56)
[2017-12-28] MEDS: MIDODRINE 5 MG TABLET PO SCH ×4 (00:01→19:35)
[2017-12-28] MEDS: MORPHINE 4 MG/1 ML VIAL IV PRN ×2 (00:29→06:01)
[2017-12-28] MEDS: oxyCODONE/ACETAMINOPHEN 5-325 MG TABLET PO PRN ×2 (02:39→19:36)
[2017-12-28] MEDS: PIPERACILLIN/TAZOBACTAM 3,375 MG in SODIUM CHLORIDE 0.9% 100 ML IV SCH ×2 (05:50→19:37)
[2017-12-28] MEDS: SEVELAMER CARBONATE 800 MG TABLET PO SCH ×3 (08:06→17:26)
[2017-12-28] MEDS: INSULIN LISPRO 100 UNIT/ML SUBCUT SCH ×4 (08:07→21:39)
[2017-12-28] MEDS: DOCUSATE SODIUM 100 MG CAPSULE PO SCH ×2 (10:39→21:39)
[2017-12-28] MEDS: ACETAMINOPHEN 325 MG TABLET PO PRN ×2 (10:39→17:26)
[2017-12-28] MEDS: SODIUM BICARBONATE 650 MG TABLET PO SCH ×2 (10:39→21:38)
[2017-12-28] MEDS: PANTOPRAZOLE 40 MG TABLET PO SCH (10:40)
[2017-12-28] MEDS: NEOMYCIN/POLYMYXIN/HC OTIC SOLN 10 ML BOTTLE BOTH EARS SCH ×3 (10:40→21:45)
[2017-12-28] MEDS: INSULIN GLARGINE 100 UNIT/ML SUBCUT SCH (21:39)
[2017-12-28] MEDS: ENOXAPARIN 30 MG/0.3 ML SYRINGE SUBCUT SCH (21:41)
[2017-12-29] MEDS: MIDODRINE 5 MG TABLET PO SCH ×4 (00:16→18:23)
[2017-12-29] MEDS: ACETAMINOPHEN 325 MG TABLET PO PRN ×2 (00:23→20:09)
[2017-12-29] MEDS: oxyCODONE/ACETAMINOPHEN 5-325 MG TABLET PO PRN ×3 (05:22→17:36)
[2017-12-29] MEDS: PIPERACILLIN/TAZOBACTAM 3,375 MG in SODIUM CHLORIDE 0.9% 100 ML IV SCH ×2 (05:25→19:02)
[2017-12-29 07:42] LABS: Basophils % 0.1 % (0.0-0.8); Eosinophils # 0.2 10*3/uL (0.0-0.87); Eosinophils % 1.5 % (0.00-10.9); Hemoglobin 7.5 GM/DL (14.0-18.0); Immature Granulocytes % 2.4 %; Immature Granulocytes Absolute 0.39 #; Lymphocytes # 1.4 10*3/uL (1.4-4.0); Lymphocytes % 8.6 % (21.2-54.2); Mean Corpuscular HGB Conc 31.3 GM/DL (32-36); Mean Corpuscular Hemoglobin 29 PG (27-34); Mean Corpuscular Volume 92.3 FL (87-102); Mean Platelet Volume 10.4 FL (9.6-12.0); Monocytes # 0.9 10*3/uL (0.11-0.8); Monocytes % 5.4 % (1.7-12.7); NRBC # 0.02 10*3/uL; Neutrophils # 13.3 10*3/uL (1.4-7.4); Platelet Count 394 T/CUMM (130-400); Red Cell Distribution Width 17.2 % (9.3-17.3); White Blood Count 16.2 T/CUMM (4-12)
[2017-12-29 08:10] LABS: Alanine Aminotransferase < 9 U/L (16-61); Albumin 1.6 G/DL (3.4-5.0); Alkaline Phosphatase 283 U/L (45-117); Aspartate Amino Transferase 7 U/L (0-37); Blood Urea Nitrogen 50 MG/DL (7-18); Calcium 6.7 MG/DL (8.5-10.1); Glucose 87 MG/DL (74-106); Osmolality,Calculated 284.8 MOS/KG (273-304); Potassium 4.1 MMOL/L (3.5-5.1); Sodium 137 MMOL/L (136-145); Total Protein 6.3 G/DL (6.4-8.3)
[2017-12-29 09:34] LABS: Sedimentation Rate-Westergren 128 MM/HR (0-20)
[2017-12-29] MEDS: INSULIN LISPRO 100 UNIT/ML SUBCUT SCH ×4 (11:44→20:06)
[2017-12-29] MEDS: SEVELAMER CARBONATE 800 MG TABLET PO SCH ×3 (11:44→17:36)
[2017-12-29] MEDS: PANTOPRAZOLE 40 MG TABLET PO SCH (11:54)
[2017-12-29] MEDS: DOCUSATE SODIUM 100 MG CAPSULE PO SCH ×2 (11:54→20:05)
[2017-12-29] MEDS: NEOMYCIN/POLYMYXIN/HC OTIC SOLN 10 ML BOTTLE BOTH EARS SCH ×3 (11:54→20:05)
[2017-12-29] MEDS: SODIUM BICARBONATE 650 MG TABLET PO SCH ×2 (11:55→20:05)
[2017-12-29] MEDS ORDERED: VANCOMYCIN INJ 500 MG in SODIUM CHLORIDE 0.9% 100 ML IV ONE (16:00)
[2017-12-29] MEDS: INSULIN GLARGINE 100 UNIT/ML SUBCUT SCH (20:06)
[2017-12-29] MEDS: ENOXAPARIN 30 MG/0.3 ML SYRINGE SUBCUT SCH (20:08)
[2017-12-30] MEDS: MIDODRINE 5 MG TABLET PO SCH ×4 (00:43→17:42)
[2017-12-30] MEDS: PIPERACILLIN/TAZOBACTAM 3,375 MG in SODIUM CHLORIDE 0.9% 100 ML IV SCH ×2 (05:41→18:04)
[2017-12-30] MEDS: oxyCODONE/ACETAMINOPHEN 5-325 MG TABLET PO PRN ×2 (05:46→12:50)
[2017-12-30 05:58] LABS: Basophils % 0.2 % (0.0-0.8); Eosinophils # 0.2 10*3/uL (0.0-0.87); Eosinophils % 1.4 % (0.00-10.9); Hematocrit 25.9 VOL% (42.0-52.0); Hemoglobin 8.3 GM/DL (14.0-18.0); Immature Granulocytes % 1.9 %; Immature Granulocytes Absolute 0.28 #; Lymphocytes # 1.3 10*3/uL (1.4-4.0); Lymphocytes % 8.7 % (21.2-54.2); Mean Corpuscular Hemoglobin 29 PG (27-34); Mean Corpuscular Volume 90.6 FL (87-102); Mean Platelet Volume 10.5 FL (9.6-12.0); Monocytes % 6.4 % (1.7-12.7); Neutrophils # 12.1 10*3/uL (1.4-7.4); Neutrophils % 81.4 % (38.7-73.9); Platelet Count 405 T/CUMM (130-400); Red Blood Count 2.86 MC/CUMM (3.8-5.5); Red Cell Distribution Width 16.9 % (9.3-17.3); White Blood Count 14.9 T/CUMM (4-12)
[2017-12-30 06:27] LABS: Prealbumin 9.8 MG/DL (20-40)
[2017-12-30 06:36] LABS: Folate 6.4 NG/ML (5.4-24.0)
[2017-12-30 07:06] LABS: Albumin 1.8 G/DL (3.4-5.0); Bilirubin,Total 0.9 MG/DL (0.2-1.0); Calcium 7.8 MG/DL (8.5-10.1); Osmolality,Calculated 276.1 MOS/KG (273-304); Potassium 3.8 MMOL/L (3.5-5.1); Total Protein 6.7 G/DL (6.4-8.3)
[2017-12-30 07:12] LABS: Parathyroid Hormone Intact 182.1 PG/ML (18.4-80.1)
[2017-12-30] MEDS: INSULIN LISPRO 100 UNIT/ML SUBCUT SCH ×4 (07:24→20:10)
[2017-12-30 07:36] LABS: Sedimentation Rate-Westergren 122 MM/HR (0-20)
[2017-12-30] MEDS: FOLIC ACID 1 MG TABLET PO SCH ×2 (08:41→21:08)
[2017-12-30] MEDS: SODIUM BICARBONATE 650 MG TABLET PO SCH ×2 (08:41→21:08)
[2017-12-30] MEDS: NEOMYCIN/POLYMYXIN/HC OTIC SOLN 10 ML BOTTLE BOTH EARS SCH ×3 (08:41→21:09)
[2017-12-30] MEDS: DOCUSATE SODIUM 100 MG CAPSULE PO SCH ×2 (08:41→20:11)
[2017-12-30] MEDS: PANTOPRAZOLE 40 MG TABLET PO SCH (08:41)
[2017-12-30] MEDS: SEVELAMER CARBONATE 800 MG TABLET PO SCH ×3 (08:41→16:34)
[2017-12-30] MEDS: CHOLECALCIFEROL 1,000 UNIT TABLET PO SCH (08:42)
[2017-12-30] MEDS: SODIUM HYPOCHLORITE 0.25% IRRIG 473 ML BOTTLE TOP SCH (15:07)
[2017-12-30] MEDS: MORPHINE 4 MG/1 ML VIAL IV PRN (15:52)
[2017-12-30] MEDS: INSULIN GLARGINE 100 UNIT/ML SUBCUT SCH (20:10)
[2017-12-30] MEDS: ACETAMINOPHEN 325 MG TABLET PO PRN (21:08)
[2017-12-30] MEDS: ENOXAPARIN 30 MG/0.3 ML SYRINGE SUBCUT SCH (21:09)
[2017-12-31] MEDS: MIDODRINE 5 MG TABLET PO SCH ×4 (01:36→19:06)
[2017-12-31 04:41] LABS: Basophils % 0.1 % (0.0-0.8); Eosinophils # 0.3 10*3/uL (0.0-0.87); Eosinophils % 2.4 % (0.00-10.9); Hematocrit 24.7 VOL% (42.0-52.0); Hemoglobin 7.6 GM/DL (14.0-18.0); Immature Granulocytes % 1.7 %; Immature Granulocytes Absolute 0.24 #; Lymphocytes # 1.8 10*3/uL (1.4-4.0); Lymphocytes % 12.9 % (21.2-54.2); Mean Corpuscular HGB Conc 30.8 GM/DL (32-36); Mean Corpuscular Hemoglobin 29 PG (27-34); Mean Corpuscular Volume 94.3 FL (87-102); Mean Platelet Volume 10.3 FL (9.6-12.0); Monocytes # 1.1 10*3/uL (0.11-0.8); Monocytes % 7.9 % (1.7-12.7); Neutrophils # 10.4 10*3/uL (1.4-7.4); Platelet Count 387 T/CUMM (130-400); Red Blood Count 2.62 MC/CUMM (3.8-5.5); White Blood Count 13.9 T/CUMM (4-12)
[2017-12-31] MEDS: PIPERACILLIN/TAZOBACTAM 3,375 MG in SODIUM CHLORIDE 0.9% 100 ML IV SCH ×2 (05:01→21:34)
[2017-12-31] MEDS: oxyCODONE/ACETAMINOPHEN 5-325 MG TABLET PO PRN ×2 (05:02→15:59)
[2017-12-31 05:45] LABS: Alanine Aminotransferase < 9 U/L (16-61); Albumin 1.7 G/DL (3.4-5.0); Alkaline Phosphatase 325 U/L (45-117); Aspartate Amino Transferase 11 U/L (0-37); Blood Urea Nitrogen 36 MG/DL (7-18); Calcium 7.3 MG/DL (8.5-10.1); Glucose 113 MG/DL (74-106); Potassium 3.8 MMOL/L (3.5-5.1); Sodium 136 MMOL/L (136-145); Total Protein 6.5 G/DL (6.4-8.3)
[2017-12-31 05:56] LABS: Sedimentation Rate-Westergren 126 MM/HR (0-20)
[2017-12-31] MEDS ORDERED: SODIUM CHLORIDE 0.9% 1,000 ML IV PRN (08:38)
[2017-12-31] MEDS: DOCUSATE SODIUM 100 MG CAPSULE PO SCH ×2 (10:03→21:24)
[2017-12-31] MEDS: SEVELAMER CARBONATE 800 MG TABLET PO SCH ×3 (10:03→17:39)
[2017-12-31] MEDS: SODIUM HYPOCHLORITE 0.25% IRRIG 473 ML BOTTLE TOP SCH (10:03)
[2017-12-31] MEDS: PANTOPRAZOLE 40 MG TABLET PO SCH (10:03)
[2017-12-31] MEDS: FOLIC ACID 1 MG TABLET PO SCH ×2 (10:03→21:25)
[2017-12-31] MEDS: NEOMYCIN/POLYMYXIN/HC OTIC SOLN 10 ML BOTTLE BOTH EARS SCH ×3 (10:03→21:25)
[2017-12-31] MEDS: INSULIN LISPRO 100 UNIT/ML SUBCUT SCH ×4 (10:03→21:23)
[2017-12-31] MEDS: CHOLECALCIFEROL 1,000 UNIT TABLET PO SCH (10:03)
[2017-12-31] MEDS: SODIUM BICARBONATE 650 MG TABLET PO SCH ×2 (10:03→21:24)
[2017-12-31] MEDS: ACETAMINOPHEN 325 MG TABLET PO PRN ×2 (10:06→21:24)
[2017-12-31] MEDS ORDERED: VANCOMYCIN INJ 400 MG in SODIUM CHLORIDE 0.9% 100 ML IV PRN (14:30)
[2017-12-31] MEDS ORDERED: VANCOMYCIN INJ 400 MG in SODIUM CHLORIDE 0.9% 100 ML IV ONE (18:00)
[2017-12-31] MEDS: ENOXAPARIN 30 MG/0.3 ML SYRINGE SUBCUT SCH (21:24)
[2017-12-31] MEDS: INSULIN GLARGINE 100 UNIT/ML SUBCUT SCH (21:26)
[2018-01-01] MEDS: MIDODRINE 5 MG TABLET PO SCH ×4 (01:23→17:51)
[2018-01-01] MEDS: oxyCODONE/ACETAMINOPHEN 5-325 MG TABLET PO PRN ×3 (01:39→16:37)
[2018-01-01 05:41] LABS: Basophils % 0.2 % (0.0-0.8); Eosinophils # 0.2 10*3/uL (0.0-0.87); Eosinophils % 1.7 % (0.00-10.9); Hematocrit 33.5 VOL% (42.0-52.0); Immature Granulocytes % 1.7 %; Immature Granulocytes Absolute 0.22 #; Lymphocytes # 1.6 10*3/uL (1.4-4.0); Lymphocytes % 12.2 % (21.2-54.2); Mean Corpuscular HGB Conc 32.8 GM/DL (32-36); Mean Corpuscular Hemoglobin 29 PG (27-34); Mean Corpuscular Volume 87.7 FL (87-102); Mean Platelet Volume 10.8 FL (9.6-12.0); Monocytes % 7.4 % (1.7-12.7); Neutrophils % 76.8 % (38.7-73.9); Platelet Count 374 T/CUMM (130-400); Red Cell Distribution Width 16.3 % (9.3-17.3)
[2018-01-01 05:46] LABS: Alanine Aminotransferase < 9 U/L (16-61); Albumin 1.8 G/DL (3.4-5.0); Alkaline Phosphatase 370 U/L (45-117); Aspartate Amino Transferase 10 U/L (0-37); Blood Urea Nitrogen 22 MG/DL (7-18); Calcium 7.7 MG/DL (8.5-10.1); Glucose 178 MG/DL (74-106); Osmolality,Calculated 276.1 MOS/KG (273-304); Potassium 3.6 MMOL/L (3.5-5.1); Sodium 135 MMOL/L (136-145); Total Protein 6.9 G/DL (6.4-8.3)
[2018-01-01 07:17] LABS: Red Blood Count 3.82 MC/CUMM (3.8-5.5)
[2018-01-01 08:22] LABS: Sedimentation Rate-Westergren 65 MM/HR (0-20)
[2018-01-01] MEDS: FOLIC ACID 1 MG TABLET PO SCH ×2 (09:13→21:44)
[2018-01-01] MEDS: SEVELAMER CARBONATE 800 MG TABLET PO SCH ×3 (09:13→16:37)
[2018-01-01] MEDS: NEOMYCIN/POLYMYXIN/HC OTIC SOLN 10 ML BOTTLE BOTH EARS SCH ×3 (09:14→21:44)
[2018-01-01] MEDS: SODIUM BICARBONATE 650 MG TABLET PO SCH ×2 (09:14→21:44)
[2018-01-01] MEDS: CHOLECALCIFEROL 1,000 UNIT TABLET PO SCH (09:14)
[2018-01-01] MEDS: PANTOPRAZOLE 40 MG TABLET PO SCH (09:14)
[2018-01-01] MEDS: DOCUSATE SODIUM 100 MG CAPSULE PO SCH ×2 (09:14→21:44)
[2018-01-01] MEDS: INSULIN LISPRO 100 UNIT/ML SUBCUT SCH ×4 (10:27→20:42)
[2018-01-01] MEDS: SODIUM HYPOCHLORITE 0.25% IRRIG 473 ML BOTTLE TOP SCH (10:50)
[2018-01-01] MEDS: PIPERACILLIN/TAZOBACTAM 3,375 MG in SODIUM CHLORIDE 0.9% 100 ML IV SCH ×2 (10:50→21:43)
[2018-01-01] MEDS: ACETAMINOPHEN 325 MG TABLET PO PRN ×2 (11:15→19:26)
[2018-01-01] MEDS: INSULIN GLARGINE 100 UNIT/ML SUBCUT SCH (20:42)
[2018-01-01] MEDS: ENOXAPARIN 30 MG/0.3 ML SYRINGE SUBCUT SCH (21:44)
[2018-01-02] MEDS: MIDODRINE 5 MG TABLET PO SCH ×4 (00:48→17:31)
[2018-01-02] MEDS: ACETAMINOPHEN 325 MG TABLET PO PRN ×3 (02:15→21:25)
[2018-01-02 05:56] LABS: Basophils % 0.2 % (0.0-0.8); Eosinophils # 0.2 10*3/uL (0.0-0.87); Eosinophils % 1.7 % (0.00-10.9); Hematocrit 33.7 VOL% (42.0-52.0); Hemoglobin 10.8 GM/DL (14.0-18.0); Immature Granulocytes % 1.4 %; Immature Granulocytes Absolute 0.18 #; Lymphocytes # 1.7 10*3/uL (1.4-4.0); Lymphocytes % 13.5 % (21.2-54.2); Mean Corpuscular Hemoglobin 29 PG (27-34); Mean Corpuscular Volume 90.6 FL (87-102); Mean Platelet Volume 10.5 FL (9.6-12.0); Monocytes # 0.7 10*3/uL (0.11-0.8); Monocytes % 5.6 % (1.7-12.7); Neutrophils # 9.8 10*3/uL (1.4-7.4); Neutrophils % 77.6 % (38.7-73.9); Platelet Count 382 T/CUMM (130-400); Red Blood Count 3.72 MC/CUMM (3.8-5.5); Red Cell Distribution Width 16.2 % (9.3-17.3); White Blood Count 12.6 T/CUMM (4-12)
[2018-01-02] MEDS: oxyCODONE/ACETAMINOPHEN 5-325 MG TABLET PO PRN (06:00)
[2018-01-02 06:23] LABS: Alanine Aminotransferase < 9 U/L (16-61); Albumin 1.8 G/DL (3.4-5.0); Alkaline Phosphatase 335 U/L (45-117); Aspartate Amino Transferase 11 U/L (0-37); Blood Urea Nitrogen 38 MG/DL (7-18); Calcium 7.6 MG/DL (8.5-10.1); Glucose 153 MG/DL (74-106); Osmolality,Calculated 275.5 MOS/KG (273-304); Potassium 4.2 MMOL/L (3.5-5.1); Sodium 132 MMOL/L (136-145); Total Protein 6.8 G/DL (6.4-8.3)
[2018-01-02 07:03] LABS: Sedimentation Rate-Westergren 54 MM/HR (0-20)
[2018-01-02] MEDS: INSULIN LISPRO 100 UNIT/ML SUBCUT SCH ×5 (07:53→21:16)
[2018-01-02] MEDS: CHOLECALCIFEROL 1,000 UNIT TABLET PO SCH (10:09)
[2018-01-02] MEDS: FOLIC ACID 1 MG TABLET PO SCH ×2 (10:10→21:05)
[2018-01-02] MEDS: PANTOPRAZOLE 40 MG TABLET PO SCH (10:10)
[2018-01-02] MEDS: SODIUM HYPOCHLORITE 0.25% IRRIG 473 ML BOTTLE TOP SCH (10:10)
[2018-01-02] MEDS: DOCUSATE SODIUM 100 MG CAPSULE PO SCH ×2 (10:10→21:05)
[2018-01-02] MEDS: SODIUM BICARBONATE 650 MG TABLET PO SCH ×2 (10:10→21:05)
[2018-01-02] MEDS: NEOMYCIN/POLYMYXIN/HC OTIC SOLN 10 ML BOTTLE BOTH EARS SCH ×3 (10:10→21:13)
[2018-01-02] MEDS: SEVELAMER CARBONATE 800 MG TABLET PO SCH ×3 (10:10→17:10)
[2018-01-02] MEDS: PIPERACILLIN/TAZOBACTAM 3,375 MG in SODIUM CHLORIDE 0.9% 100 ML IV SCH ×2 (11:30→21:04)
[2018-01-02] MEDS: ENOXAPARIN 30 MG/0.3 ML SYRINGE SUBCUT SCH (21:05)
[2018-01-02] MEDS: INSULIN GLARGINE 100 UNIT/ML SUBCUT SCH ×2 (21:06→21:16)
[2018-01-03] MEDS: MIDODRINE 5 MG TABLET PO SCH ×4 (00:34→17:39)
[2018-01-03 06:06] LABS: Basophils # 0.1 10*3/uL (0.0-0.2); Basophils % 0.4 % (0.0-0.8); Eosinophils # 0.2 10*3/uL (0.0-0.87); Eosinophils % 1.4 % (0.00-10.9); Hematocrit 34.2 VOL% (42.0-52.0); Hemoglobin 11.4 GM/DL (14.0-18.0); Immature Granulocytes % 1.2 %; Immature Granulocytes Absolute 0.16 #; Lymphocytes % 14.8 % (21.2-54.2); Mean Corpuscular HGB Conc 33.3 GM/DL (32-36); Mean Corpuscular Hemoglobin 29 PG (27-34); Mean Platelet Volume 10.5 FL (9.6-12.0); Monocytes # 0.7 10*3/uL (0.11-0.8); Monocytes % 5.5 % (1.7-12.7); Neutrophils # 10.1 10*3/uL (1.4-7.4); Neutrophils % 76.7 % (38.7-73.9); Platelet Count 436 T/CUMM (130-400); Red Blood Count 3.93 MC/CUMM (3.8-5.5); Red Cell Distribution Width 16.1 % (9.3-17.3); White Blood Count 13.2 T/CUMM (4-12)
[2018-01-03 06:38] LABS: Alanine Aminotransferase < 9 U/L (16-61); Albumin 1.7 G/DL (3.4-5.0); Alkaline Phosphatase 337 U/L (45-117); Aspartate Amino Transferase 10 U/L (0-37); Blood Urea Nitrogen 46 MG/DL (7-18); Calcium 7.9 MG/DL (8.5-10.1); Glucose 111 MG/DL (74-106); Osmolality,Calculated 278.4 MOS/KG (273-304); Potassium 4.3 MMOL/L (3.5-5.1); Sodium 133 MMOL/L (136-145); Total Protein 6.9 G/DL (6.4-8.3)
[2018-01-03 07:30] LABS: Sedimentation Rate-Westergren 55 MM/HR (0-20)
[2018-01-03] MEDS: INSULIN LISPRO 100 UNIT/ML SUBCUT SCH ×4 (07:46→21:45)
[2018-01-03] MEDS: SEVELAMER CARBONATE 800 MG TABLET PO SCH ×3 (14:59→17:38)
[2018-01-03] MEDS: DOCUSATE SODIUM 100 MG CAPSULE PO SCH ×2 (15:00→21:51)
[2018-01-03] MEDS: SODIUM BICARBONATE 650 MG TABLET PO SCH ×2 (15:01→21:51)
[2018-01-03] MEDS: PANTOPRAZOLE 40 MG TABLET PO SCH (15:01)
[2018-01-03] MEDS: NEOMYCIN/POLYMYXIN/HC OTIC SOLN 10 ML BOTTLE BOTH EARS SCH ×3 (15:01→21:52)
[2018-01-03] MEDS: FOLIC ACID 1 MG TABLET PO SCH ×2 (15:01→21:51)
[2018-01-03] MEDS: PIPERACILLIN/TAZOBACTAM 3,375 MG in SODIUM CHLORIDE 0.9% 100 ML IV SCH ×2 (15:02→23:04)
[2018-01-03] MEDS: CHOLECALCIFEROL 1,000 UNIT TABLET PO SCH (15:02)
[2018-01-03] MEDS ORDERED: VANCOMYCIN INJ 400 MG in SODIUM CHLORIDE 0.9% 100 ML IV ONE (16:00)
[2018-01-03] MEDS: SODIUM HYPOCHLORITE 0.25% IRRIG 473 ML BOTTLE TOP SCH (17:41)
[2018-01-03] MEDS: INSULIN GLARGINE 100 UNIT/ML SUBCUT SCH (21:45)
[2018-01-03] MEDS: ACETAMINOPHEN 325 MG TABLET PO PRN (21:50)
[2018-01-03] MEDS: ENOXAPARIN 30 MG/0.3 ML SYRINGE SUBCUT SCH (21:51)
[2018-01-04] MEDS: MIDODRINE 5 MG TABLET PO SCH ×4 (00:21→17:56)
[2018-01-04] MEDS: ACETAMINOPHEN 325 MG TABLET PO PRN ×4 (03:07→21:05)
[2018-01-04 06:22] LABS: Basophils # 0.1 10*3/uL (0.0-0.2); Basophils % 0.4 % (0.0-0.8); Eosinophils # 0.1 10*3/uL (0.0-0.87); Eosinophils % 1.1 % (0.00-10.9); Hematocrit 33.6 VOL% (42.0-52.0); Hemoglobin 10.8 GM/DL (14.0-18.0); Immature Granulocytes % 1.4 %; Immature Granulocytes Absolute 0.18 #; Lymphocytes # 1.8 10*3/uL (1.4-4.0); Lymphocytes % 14.5 % (21.2-54.2); Mean Corpuscular HGB Conc 32.1 GM/DL (32-36); Mean Corpuscular Hemoglobin 29 PG (27-34); Mean Corpuscular Volume 89.8 FL (87-102); Mean Platelet Volume 10.5 FL (9.6-12.0); Monocytes # 0.9 10*3/uL (0.11-0.8); Monocytes % 7.1 % (1.7-12.7); Neutrophils # 9.4 10*3/uL (1.4-7.4); Neutrophils % 75.5 % (38.7-73.9); Platelet Count 446 T/CUMM (130-400); Red Blood Count 3.74 MC/CUMM (3.8-5.5); Red Cell Distribution Width 16.1 % (9.3-17.3); White Blood Count 12.5 T/CUMM (4-12)
[2018-01-04 06:58] LABS: Osmolality,Calculated 284.2 MOS/KG (273-304); Potassium 3.7 MMOL/L (3.5-5.1)
[2018-01-04] MEDS: INSULIN LISPRO 100 UNIT/ML SUBCUT SCH ×4 (07:39→21:02)
[2018-01-04] MEDS: CHOLECALCIFEROL 1,000 UNIT TABLET PO SCH (08:45)
[2018-01-04] MEDS: PANTOPRAZOLE 40 MG TABLET PO SCH (08:45)
[2018-01-04] MEDS: FOLIC ACID 1 MG TABLET PO SCH ×2 (08:45→21:01)
[2018-01-04] MEDS: DOCUSATE SODIUM 100 MG CAPSULE PO SCH ×2 (08:45→21:01)
[2018-01-04] MEDS: SEVELAMER CARBONATE 800 MG TABLET PO SCH ×3 (08:45→16:08)
[2018-01-04] MEDS: SODIUM BICARBONATE 650 MG TABLET PO SCH ×2 (08:46→21:01)
[2018-01-04] MEDS: PIPERACILLIN/TAZOBACTAM 3,375 MG in SODIUM CHLORIDE 0.9% 100 ML IV SCH ×2 (08:53→21:02)
[2018-01-04] MEDS: SODIUM HYPOCHLORITE 0.25% IRRIG 473 ML BOTTLE TOP SCH (09:54)
[2018-01-04] MEDS: NEOMYCIN/POLYMYXIN/HC OTIC SOLN 10 ML BOTTLE BOTH EARS SCH ×3 (09:54→21:17)
[2018-01-04] MEDS: ENOXAPARIN 30 MG/0.3 ML SYRINGE SUBCUT SCH (21:01)
[2018-01-04] MEDS: INSULIN GLARGINE 100 UNIT/ML SUBCUT SCH (21:02)
[2018-01-05] MEDS: MIDODRINE 5 MG TABLET PO SCH ×4 (00:32→18:31)
[2018-01-05 05:55] LABS: Basophils # 0.1 10*3/uL (0.0-0.2); Basophils % 0.4 % (0.0-0.8); Eosinophils # 0.2 10*3/uL (0.0-0.87); Eosinophils % 1.2 % (0.00-10.9); Hematocrit 36.6 VOL% (42.0-52.0); Hemoglobin 11.8 GM/DL (14.0-18.0); Immature Granulocytes % 1.1 %; Immature Granulocytes Absolute 0.14 #; Lymphocytes % 15.1 % (21.2-54.2); Mean Corpuscular HGB Conc 32.2 GM/DL (32-36); Mean Corpuscular Hemoglobin 28 PG (27-34); Mean Corpuscular Volume 88.2 FL (87-102); Mean Platelet Volume 10.4 FL (9.6-12.0); Monocytes # 0.7 10*3/uL (0.11-0.8); Neutrophils % 77.2 % (38.7-73.9); Platelet Count 514 T/CUMM (130-400); Red Blood Count 4.15 MC/CUMM (3.8-5.5); Red Cell Distribution Width 16.4 % (9.3-17.3)
[2018-01-05 06:10] LABS: Calcium 8.3 MG/DL (8.5-10.1); Potassium 4.3 MMOL/L (3.5-5.1)
[2018-01-05] MEDS: INSULIN LISPRO 100 UNIT/ML SUBCUT SCH ×4 (07:52→20:27)
[2018-01-05] MEDS: PIPERACILLIN/TAZOBACTAM 3,375 MG in SODIUM CHLORIDE 0.9% 100 ML IV SCH ×2 (08:44→20:25)
[2018-01-05] MEDS: ACETAMINOPHEN 325 MG TABLET PO PRN ×4 (08:46→23:10)
[2018-01-05] MEDS: SEVELAMER CARBONATE 800 MG TABLET PO SCH ×3 (08:56→16:35)
[2018-01-05] MEDS: DOCUSATE SODIUM 100 MG CAPSULE PO SCH ×2 (08:56→20:26)
[2018-01-05] MEDS: NEOMYCIN/POLYMYXIN/HC OTIC SOLN 10 ML BOTTLE BOTH EARS SCH ×3 (08:56→20:27)
[2018-01-05] MEDS: PANTOPRAZOLE 40 MG TABLET PO SCH (08:57)
[2018-01-05] MEDS: FOLIC ACID 1 MG TABLET PO SCH ×2 (08:57→20:26)
[2018-01-05] MEDS: SODIUM HYPOCHLORITE 0.25% IRRIG 473 ML BOTTLE TOP SCH (08:57)
[2018-01-05] MEDS: CHOLECALCIFEROL 1,000 UNIT TABLET PO SCH (08:58)
[2018-01-05] MEDS: SODIUM BICARBONATE 650 MG TABLET PO SCH ×2 (08:58→20:26)
[2018-01-05] MEDS ORDERED: VANCOMYCIN INJ 400 MG in SODIUM CHLORIDE 0.9% 100 ML IV ONE (16:00)
[2018-01-05] MEDS: INSULIN GLARGINE 100 UNIT/ML SUBCUT SCH (20:27)
[2018-01-05] MEDS: ENOXAPARIN 30 MG/0.3 ML SYRINGE SUBCUT SCH (20:27)
[2018-01-06] MEDS: MIDODRINE 5 MG TABLET PO SCH ×5 (00:51→23:32)
[2018-01-06 05:54] LABS: Basophils # 0.1 10*3/uL (0.0-0.2); Basophils % 0.5 % (0.0-0.8); Eosinophils # 0.1 10*3/uL (0.0-0.87); Eosinophils % 0.8 % (0.00-10.9); Hematocrit 35.6 VOL% (42.0-52.0); Hemoglobin 11.6 GM/DL (14.0-18.0); Immature Granulocytes % 0.9 %; Immature Granulocytes Absolute 0.14 #; Lymphocytes % 12.9 % (21.2-54.2); Mean Corpuscular HGB Conc 32.6 GM/DL (32-36); Mean Corpuscular Hemoglobin 29 PG (27-34); Mean Corpuscular Volume 88.6 FL (87-102); Mean Platelet Volume 10.2 FL (9.6-12.0); Monocytes # 0.9 10*3/uL (0.11-0.8); Monocytes % 5.6 % (1.7-12.7); Neutrophils # 12.1 10*3/uL (1.4-7.4); Neutrophils % 79.3 % (38.7-73.9); Platelet Count 532 T/CUMM (130-400); Red Blood Count 4.02 MC/CUMM (3.8-5.5); Red Cell Distribution Width 16.4 % (9.3-17.3); White Blood Count 15.2 T/CUMM (4-12)
[2018-01-06 06:06] LABS: Calcium 8.2 MG/DL (8.5-10.1); Osmolality,Calculated 281.4 MOS/KG (273-304); Potassium 4.1 MMOL/L (3.5-5.1)
[2018-01-06] MEDS ORDERED: DEXTROSE 50% 25 GM/50 ML VIAL IV PRN (08:14)
[2018-01-06] MEDS ORDERED: GLUCAGON 1 MG VIAL IM PRN (08:14)
[2018-01-06] MEDS ORDERED: SEVOFLURANE 1 UNIT/15 MINUTE INH ONE (08:21)
[2018-01-06] MEDS ORDERED: PROPOFOL 200 MG/20 ML VIAL IV ONE (08:21)
[2018-01-06] MEDS ORDERED: KETOROLAC 30 MG/1 ML VIAL ONE (08:22)
[2018-01-06] MEDS ORDERED: MIDAZOLAM 2 MG/2 ML VIAL ONE (08:22)
[2018-01-06] MEDS ORDERED: PHENYLEPHRINE 10 MG/1 ML VIAL IV ONE (08:22)
[2018-01-06] MEDS ORDERED: DEXAMETHASONE 10 MG/1 ML VIAL ONE (08:22)
[2018-01-06] MEDS ORDERED: ONDANSETRON 4 MG/2 ML VIAL ONE (08:22)
[2018-01-06] MEDS ORDERED: SODIUM CHLORIDE 0.9% 100 ML IV ONE (08:22)
[2018-01-06] MEDS ORDERED: fentaNYL 100 MCG/2 ML VIAL ONE (08:22)
[2018-01-06] MEDS ORDERED: ETOMIDATE 40 MG/20 ML VIAL IV ONE (08:22)
[2018-01-06] MEDS: INSULIN LISPRO 100 UNIT/ML SUBCUT SCH ×4 (08:29→21:40)
[2018-01-06] MEDS: SEVELAMER CARBONATE 800 MG TABLET PO SCH ×3 (08:30→18:27)
[2018-01-06] MEDS: CHOLECALCIFEROL 1,000 UNIT TABLET PO SCH (11:06)
[2018-01-06] MEDS: PANTOPRAZOLE 40 MG TABLET PO SCH (11:06)
[2018-01-06] MEDS: SODIUM BICARBONATE 650 MG TABLET PO SCH ×2 (11:06→21:35)
[2018-01-06] MEDS: FOLIC ACID 1 MG TABLET PO SCH ×2 (11:07→21:36)
[2018-01-06] MEDS: ACETAMINOPHEN 325 MG TABLET PO PRN ×3 (11:07→21:35)
[2018-01-06] MEDS: DOCUSATE SODIUM 100 MG CAPSULE PO SCH ×2 (11:07→21:35)
[2018-01-06] MEDS: NEOMYCIN/POLYMYXIN/HC OTIC SOLN 10 ML BOTTLE BOTH EARS SCH ×3 (11:12→21:36)
[2018-01-06] MEDS: PIPERACILLIN/TAZOBACTAM 3,375 MG in SODIUM CHLORIDE 0.9% 100 ML IV SCH ×2 (12:40→23:35)
[2018-01-06] MEDS: ENOXAPARIN 30 MG/0.3 ML SYRINGE SUBCUT SCH (21:36)
[2018-01-06] MEDS: INSULIN GLARGINE 100 UNIT/ML SUBCUT SCH (21:40)
[2018-01-06] MEDS: SODIUM HYPOCHLORITE 0.25% IRRIG 473 ML BOTTLE TOP SCH (22:54)
[2018-01-07] MEDS: ACETAMINOPHEN 325 MG TABLET PO PRN ×3 (05:40→17:22)
[2018-01-07] MEDS: MIDODRINE 5 MG TABLET PO SCH ×3 (05:41→17:49)
[2018-01-07 06:33] LABS: Basophils # 0.1 10*3/uL (0.0-0.2); Basophils % 0.3 % (0.0-0.8); Eosinophils % 0.2 % (0.00-10.9); Hematocrit 30.5 VOL% (42.0-52.0); Hemoglobin 9.7 GM/DL (14.0-18.0); Immature Granulocytes Absolute 0.15 #; Lymphocytes # 2.4 10*3/uL (1.4-4.0); Lymphocytes % 15.2 % (21.2-54.2); Mean Corpuscular HGB Conc 31.8 GM/DL (32-36); Mean Corpuscular Hemoglobin 29 PG (27-34); Mean Corpuscular Volume 92.1 FL (87-102); Monocytes # 0.9 10*3/uL (0.11-0.8); Monocytes % 5.5 % (1.7-12.7); Neutrophils # 12.3 10*3/uL (1.4-7.4); Neutrophils % 77.8 % (38.7-73.9); Platelet Count 519 T/CUMM (130-400); Red Blood Count 3.31 MC/CUMM (3.8-5.5); Red Cell Distribution Width 16.6 % (9.3-17.3); White Blood Count 15.8 T/CUMM (4-12)
[2018-01-07 07:05] LABS: Calcium 7.8 MG/DL (8.5-10.1); Osmolality,Calculated 295.5 MOS/KG (273-304); Potassium 4.5 MMOL/L (3.5-5.1)
[2018-01-07] MEDS: INSULIN LISPRO 100 UNIT/ML SUBCUT SCH ×4 (08:12→21:30)
[2018-01-07] MEDS: PANTOPRAZOLE 40 MG TABLET PO SCH (08:14)
[2018-01-07] MEDS: SEVELAMER CARBONATE 800 MG TABLET PO SCH ×3 (08:14→17:22)
[2018-01-07] MEDS: CHOLECALCIFEROL 1,000 UNIT TABLET PO SCH (08:14)
[2018-01-07] MEDS: DOCUSATE SODIUM 100 MG CAPSULE PO SCH ×2 (08:14→21:31)
[2018-01-07] MEDS: SODIUM BICARBONATE 650 MG TABLET PO SCH ×2 (08:14→21:31)
[2018-01-07] MEDS: FOLIC ACID 1 MG TABLET PO SCH ×2 (08:14→21:31)
[2018-01-07] MEDS: NEOMYCIN/POLYMYXIN/HC OTIC SOLN 10 ML BOTTLE BOTH EARS SCH ×3 (08:15→21:32)
[2018-01-07] MEDS: SODIUM HYPOCHLORITE 0.25% IRRIG 473 ML BOTTLE TOP SCH (09:03)
[2018-01-07] MEDS: ENOXAPARIN 30 MG/0.3 ML SYRINGE SUBCUT SCH (21:30)
[2018-01-07] MEDS: INSULIN GLARGINE 100 UNIT/ML SUBCUT SCH (21:32)
[2018-01-08] MEDS: MIDODRINE 5 MG TABLET PO SCH ×4 (00:57→17:51)
[2018-01-08 06:54] LABS: Basophils # 0.1 10*3/uL (0.0-0.2); Basophils % 0.7 % (0.0-0.8); Eosinophils # 0.1 10*3/uL (0.0-0.87); Eosinophils % 0.9 % (0.00-10.9); Hemoglobin 8.9 GM/DL (14.0-18.0); Immature Granulocytes % 0.7 %; Immature Granulocytes Absolute 0.07 #; Lymphocytes # 2.3 10*3/uL (1.4-4.0); Lymphocytes % 21.3 % (21.2-54.2); Mean Corpuscular HGB Conc 31.8 GM/DL (32-36); Mean Corpuscular Hemoglobin 29 PG (27-34); Mean Corpuscular Volume 91.2 FL (87-102); Mean Platelet Volume 9.8 FL (9.6-12.0); Monocytes # 0.7 10*3/uL (0.11-0.8); Monocytes % 6.7 % (1.7-12.7); Neutrophils # 7.4 10*3/uL (1.4-7.4); Neutrophils % 69.7 % (38.7-73.9); Platelet Count 476 T/CUMM (130-400); Red Blood Count 3.07 MC/CUMM (3.8-5.5); Red Cell Distribution Width 16.8 % (9.3-17.3); White Blood Count 10.6 T/CUMM (4-12)
[2018-01-08 07:15] LABS: Calcium 7.6 MG/DL (8.5-10.1); Osmolality,Calculated 283.8 MOS/KG (273-304); Potassium 3.9 MMOL/L (3.5-5.1)
[2018-01-08] MEDS: INSULIN LISPRO 100 UNIT/ML SUBCUT SCH ×4 (09:16→20:13)
[2018-01-08] MEDS: SODIUM BICARBONATE 650 MG TABLET PO SCH ×2 (09:50→20:34)
[2018-01-08] MEDS: CHOLECALCIFEROL 1,000 UNIT TABLET PO SCH (09:50)
[2018-01-08] MEDS: DOCUSATE SODIUM 100 MG CAPSULE PO SCH ×2 (09:50→20:34)
[2018-01-08] MEDS: PANTOPRAZOLE 40 MG TABLET PO SCH (09:51)
[2018-01-08] MEDS: ACETAMINOPHEN 325 MG TABLET PO PRN ×3 (09:51→20:38)
[2018-01-08] MEDS: FOLIC ACID 1 MG TABLET PO SCH ×2 (09:52→20:33)
[2018-01-08] MEDS: SEVELAMER CARBONATE 800 MG TABLET PO SCH ×3 (09:52→16:48)
[2018-01-08] MEDS: NEOMYCIN/POLYMYXIN/HC OTIC SOLN 10 ML BOTTLE BOTH EARS SCH ×3 (09:55→20:34)
[2018-01-08] MEDS: SODIUM HYPOCHLORITE 0.25% IRRIG 473 ML BOTTLE TOP SCH (19:27)
[2018-01-08] MEDS: INSULIN GLARGINE 100 UNIT/ML SUBCUT SCH (20:14)
[2018-01-08] MEDS: ENOXAPARIN 30 MG/0.3 ML SYRINGE SUBCUT SCH (20:33)
[2018-01-09] MEDS: MIDODRINE 5 MG TABLET PO SCH ×4 (00:38→17:44)
[2018-01-09] MEDS: ACETAMINOPHEN 325 MG TABLET PO PRN ×4 (04:46→21:34)
[2018-01-09 05:43] LABS: Basophils # 0.1 10*3/uL (0.0-0.2); Basophils % 0.9 % (0.0-0.8); Eosinophils # 0.1 10*3/uL (0.0-0.87); Hematocrit 27.4 VOL% (42.0-52.0); Hemoglobin 8.5 GM/DL (14.0-18.0); Immature Granulocytes % 0.7 %; Immature Granulocytes Absolute 0.07 #; Lymphocytes # 2.5 10*3/uL (1.4-4.0); Mean Corpuscular Hemoglobin 29 PG (27-34); Mean Corpuscular Volume 92.9 FL (87-102); Mean Platelet Volume 10.3 FL (9.6-12.0); Monocytes # 0.7 10*3/uL (0.11-0.8); Neutrophils # 6.6 10*3/uL (1.4-7.4); Neutrophils % 65.4 % (38.7-73.9); Platelet Count 540 T/CUMM (130-400); Red Blood Count 2.95 MC/CUMM (3.8-5.5); Red Cell Distribution Width 16.8 % (9.3-17.3)
[2018-01-09 06:05] LABS: Calcium 7.6 MG/DL (8.5-10.1); Osmolality,Calculated 284.5 MOS/KG (273-304); Potassium 4.4 MMOL/L (3.5-5.1)
[2018-01-09] MEDS ORDERED: EPOETIN ALFA 2,000 UNIT/1 ML VIAL IV PRN (06:49)
[2018-01-09] MEDS: INSULIN LISPRO 100 UNIT/ML SUBCUT SCH ×4 (08:00→21:23)
[2018-01-09] MEDS: SODIUM BICARBONATE 650 MG TABLET PO SCH ×2 (08:58→21:22)
[2018-01-09] MEDS: SEVELAMER CARBONATE 800 MG TABLET PO SCH ×3 (08:58→17:44)
[2018-01-09] MEDS: PANTOPRAZOLE 40 MG TABLET PO SCH (08:59)
[2018-01-09] MEDS: CHOLECALCIFEROL 1,000 UNIT TABLET PO SCH (08:59)
[2018-01-09] MEDS: FOLIC ACID 1 MG TABLET PO SCH ×2 (08:59→21:22)
[2018-01-09] MEDS: DOCUSATE SODIUM 100 MG CAPSULE PO SCH ×2 (08:59→21:22)
[2018-01-09] MEDS: NEOMYCIN/POLYMYXIN/HC OTIC SOLN 10 ML BOTTLE BOTH EARS SCH ×3 (09:00→21:25)
[2018-01-09] MEDS: SODIUM HYPOCHLORITE 0.25% IRRIG 473 ML BOTTLE TOP SCH (09:39)
[2018-01-09] MEDS: ENOXAPARIN 30 MG/0.3 ML SYRINGE SUBCUT SCH (21:22)
[2018-01-09] MEDS: INSULIN GLARGINE 100 UNIT/ML SUBCUT SCH (21:23)
[2018-01-10] MEDS: MIDODRINE 5 MG TABLET PO SCH ×4 (00:56→17:46)
[2018-01-10] MEDS: ACETAMINOPHEN 325 MG TABLET PO PRN ×2 (06:53→19:48)
[2018-01-10] MEDS: INSULIN LISPRO 100 UNIT/ML SUBCUT SCH ×4 (08:45→20:23)
[2018-01-10] MEDS: NEOMYCIN/POLYMYXIN/HC OTIC SOLN 10 ML BOTTLE BOTH EARS SCH ×3 (09:50→20:23)
[2018-01-10] MEDS: SEVELAMER CARBONATE 800 MG TABLET PO SCH ×3 (11:47→16:58)
[2018-01-10] MEDS: DOCUSATE SODIUM 100 MG CAPSULE PO SCH ×2 (11:47→20:21)
[2018-01-10] MEDS: PANTOPRAZOLE 40 MG TABLET PO SCH (11:48)
[2018-01-10] MEDS: SODIUM BICARBONATE 650 MG TABLET PO SCH ×2 (11:48→20:20)
[2018-01-10] MEDS: CHOLECALCIFEROL 1,000 UNIT TABLET PO SCH (11:48)
[2018-01-10] MEDS: FOLIC ACID 1 MG TABLET PO SCH ×2 (11:48→20:21)
[2018-01-10] MEDS: SODIUM HYPOCHLORITE 0.25% IRRIG 473 ML BOTTLE TOP SCH (11:49)
[2018-01-10] MEDS: ENOXAPARIN 30 MG/0.3 ML SYRINGE SUBCUT SCH (20:20)
[2018-01-10] MEDS: INSULIN GLARGINE 100 UNIT/ML SUBCUT SCH (20:22)
[2018-01-11] MEDS: ACETAMINOPHEN 325 MG TABLET PO PRN ×5 (00:56→23:24)
[2018-01-11] MEDS: MIDODRINE 5 MG TABLET PO SCH ×5 (01:18→23:45)
[2018-01-11 06:01] LABS: Basophils # 0.1 10*3/uL (0.0-0.2); Basophils % 1.2 % (0.0-0.8); Eosinophils # 0.2 10*3/uL (0.0-0.87); Hemoglobin 8.5 GM/DL (14.0-18.0); Immature Granulocytes % 1.1 %; Immature Granulocytes Absolute 0.09 #; Lymphocytes # 2.4 10*3/uL (1.4-4.0); Lymphocytes % 28.6 % (21.2-54.2); Mean Corpuscular HGB Conc 31.5 GM/DL (32-36); Mean Corpuscular Hemoglobin 29 PG (27-34); Mean Corpuscular Volume 92.8 FL (87-102); Mean Platelet Volume 10.3 FL (9.6-12.0); Monocytes # 0.6 10*3/uL (0.11-0.8); Neutrophils # 5.1 10*3/uL (1.4-7.4); Neutrophils % 60.1 % (38.7-73.9); Platelet Count 620 T/CUMM (130-400); Red Blood Count 2.91 MC/CUMM (3.8-5.5); Red Cell Distribution Width 16.8 % (9.3-17.3); White Blood Count 8.4 T/CUMM (4-12)
[2018-01-11] MEDS: FOLIC ACID 1 MG TABLET PO SCH ×2 (08:42→20:48)
[2018-01-11] MEDS: SEVELAMER CARBONATE 800 MG TABLET PO SCH ×3 (08:43→17:37)
[2018-01-11] MEDS: DOCUSATE SODIUM 100 MG CAPSULE PO SCH ×2 (08:43→20:48)
[2018-01-11] MEDS: SODIUM BICARBONATE 650 MG TABLET PO SCH ×2 (08:43→20:48)
[2018-01-11] MEDS: CHOLECALCIFEROL 1,000 UNIT TABLET PO SCH (08:43)
[2018-01-11] MEDS: NEOMYCIN/POLYMYXIN/HC OTIC SOLN 10 ML BOTTLE BOTH EARS SCH ×3 (08:44→20:58)
[2018-01-11] MEDS: INSULIN LISPRO 100 UNIT/ML SUBCUT SCH ×4 (08:44→20:53)
[2018-01-11] MEDS: SODIUM HYPOCHLORITE 0.25% IRRIG 473 ML BOTTLE TOP SCH (08:44)
[2018-01-11] MEDS: PANTOPRAZOLE 40 MG TABLET PO SCH (08:44)
[2018-01-11] MEDS: ENOXAPARIN 30 MG/0.3 ML SYRINGE SUBCUT SCH (20:48)
[2018-01-11] MEDS: INSULIN GLARGINE 100 UNIT/ML SUBCUT SCH (20:58)
[2018-01-12] MEDS: MIDODRINE 5 MG TABLET PO SCH ×2 (06:48→13:16)
[2018-01-12] MEDS: ACETAMINOPHEN 325 MG TABLET PO PRN (06:49)
[2018-01-12 10:37] LABS: Basophils # 0.1 10*3/uL (0.0-0.2); Basophils % 0.8 % (0.0-0.8); Eosinophils # 0.2 10*3/uL (0.0-0.87); Eosinophils % 1.5 % (0.00-10.9); Hematocrit 23.9 VOL% (42.0-52.0); Hemoglobin 7.7 GM/DL (14.0-18.0); Immature Granulocytes % 0.7 %; Immature Granulocytes Absolute 0.08 #; Lymphocytes # 1.7 10*3/uL (1.4-4.0); Lymphocytes % 14.9 % (21.2-54.2); Mean Corpuscular HGB Conc 32.2 GM/DL (32-36); Mean Corpuscular Hemoglobin 29 PG (27-34); Mean Corpuscular Volume 90.5 FL (87-102); Monocytes # 0.6 10*3/uL (0.11-0.8); Monocytes % 4.8 % (1.7-12.7); Neutrophils # 8.8 10*3/uL (1.4-7.4); Neutrophils % 77.3 % (38.7-73.9); Platelet Count 543 T/CUMM (130-400); Red Blood Count 2.64 MC/CUMM (3.8-5.5); Red Cell Distribution Width 16.4 % (9.3-17.3); White Blood Count 11.4 T/CUMM (4-12)
[2018-01-12] MEDS: SEVELAMER CARBONATE 800 MG TABLET PO SCH ×2 (10:38→13:16)
[2018-01-12] MEDS: INSULIN LISPRO 100 UNIT/ML SUBCUT SCH ×2 (10:38→13:16)
[2018-01-12] MEDS: FOLIC ACID 1 MG TABLET PO SCH (10:39)
[2018-01-12] MEDS: NEOMYCIN/POLYMYXIN/HC OTIC SOLN 10 ML BOTTLE BOTH EARS SCH (10:39)
[2018-01-12] MEDS: DOCUSATE SODIUM 100 MG CAPSULE PO SCH (10:39)
[2018-01-12] MEDS: CHOLECALCIFEROL 1,000 UNIT TABLET PO SCH (10:47)
[2018-01-12] MEDS: PANTOPRAZOLE 40 MG TABLET PO SCH (10:47)
[2018-01-12] MEDS: SODIUM BICARBONATE 650 MG TABLET PO SCH (10:47)
[2018-01-12 14:56] VITALS: BP 125/81
== END 2018-01-12 14:40 | disposition home health service (06) | DRG 180 ==
LOC: EDUNIT# → EDBD → N.ED 17:29 → N.EDINP 18:22 → SUATTDRO 18:23 → N.3E 19:14
PROVIDERS: ADMIT Internal Medicine; ATTEND Internal Medicine

== ENCOUNTER 2018-03-19 12:36 | Observation (INO) ==
[2018-03-19] MEDS ORDERED: GLUCAGON 1 MG VIAL IM PRN (14:47)
[2018-03-19] MEDS ORDERED: ONDANSETRON 4 MG/2 ML VIAL IV PRN (14:47)
[2018-03-19] MEDS ORDERED: PROMETHAZINE 25 MG TABLET PO PRN (14:47)
[2018-03-19] MEDS ORDERED: DEXTROSE 50% 25 GM/50 ML VIAL IV PRN (14:47)
[2018-03-19] MEDS ORDERED: VANCOMYCIN INJ 1,000 MG in SODIUM CHLORIDE 0.9% 250 ML IV ONE (15:17)
[2018-03-19 15:38] LABS: Basophils % 0.3 % (0.0-0.8); Eosinophils # 0.2 10*3/uL (0.0-0.87); Eosinophils % 1.2 % (0.00-10.9); Hematocrit 31.6 VOL% (42.0-52.0); Hemoglobin 9.9 GM/DL (14.0-18.0); Immature Granulocytes % 0.6 %; Lymphocytes # 2.1 10*3/uL (1.4-4.0); Lymphocytes % 13.1 % (21.2-54.2); Mean Corpuscular HGB Conc 31.3 GM/DL (32-36); Mean Corpuscular Hemoglobin 29 PG (27-34); Mean Corpuscular Volume 93.5 FL (87-102); Mean Platelet Volume 10.1 FL (9.6-12.0); Monocytes # 0.7 10*3/uL (0.11-0.8); Monocytes % 4.6 % (1.7-12.7); NRBC # 0.05 10*3/uL; Neutrophils # 12.6 10*3/uL (1.4-7.4); Neutrophils % 80.2 % (38.7-73.9); Platelet Count 268 T/CUMM (130-400); Red Blood Count 3.38 MC/CUMM (3.8-5.5); Red Cell Distribution Width 18.2 % (9.3-17.3); White Blood Count 15.7 T/CUMM (4-12)
[2018-03-19 16:02] LABS: Albumin 2.7 G/DL (3.4-5.0); Bilirubin,Total 0.4 MG/DL (0.2-1.0); Calcium 7.3 MG/DL (8.5-10.1); Osmolality,Calculated 283.5 MOS/KG (273-304); Potassium 3.1 MMOL/L (3.5-5.1); Total Protein 7.9 G/DL (6.4-8.3)
[2018-03-19] MEDS: INSULIN LISPRO 100 UNIT/ML SUBCUT SCH ×2 (16:37→20:55)
[2018-03-19] MEDS ORDERED: HEPARIN LOCK FLUSH 500 UNIT/5 ML SYRINGE IV PRN (18:19)
[2018-03-19] MEDS: DOXYCYCLINE HYCLATE INJ 100 MG in SODIUM CHLORIDE 0.9% 100 ML IV SCH (18:33)
[2018-03-19] MEDS: HEPARIN LOCK FLUSH 500 UNIT/5 ML SYRINGE IV SCH (20:53)
[2018-03-20] MEDS: DOXYCYCLINE HYCLATE INJ 100 MG in SODIUM CHLORIDE 0.9% 100 ML IV SCH (04:47)
[2018-03-20] MEDS: INSULIN LISPRO 100 UNIT/ML SUBCUT SCH ×2 (08:37→11:37)
[2018-03-20 08:56] LABS: Basophils # 0.1 10*3/uL (0.0-0.2); Basophils % 0.4 % (0.0-0.8); Eosinophils # 0.2 10*3/uL (0.0-0.87); Hematocrit 29.2 VOL% (42.0-52.0); Immature Granulocytes % 0.6 %; Immature Granulocytes Absolute 0.07 #; Mean Corpuscular HGB Conc 30.8 GM/DL (32-36); Mean Corpuscular Hemoglobin 29 PG (27-34); Mean Corpuscular Volume 94.8 FL (87-102); Mean Platelet Volume 9.8 FL (9.6-12.0); Monocytes # 0.7 10*3/uL (0.11-0.8); Monocytes % 5.8 % (1.7-12.7); NRBC # 0.03 10*3/uL; Neutrophils # 8.6 10*3/uL (1.4-7.4); Neutrophils % 74.2 % (38.7-73.9); Platelet Count 241 T/CUMM (130-400); Red Blood Count 3.08 MC/CUMM (3.8-5.5); Red Cell Distribution Width 18.5 % (9.3-17.3); White Blood Count 11.6 T/CUMM (4-12)
[2018-03-20] MEDS ORDERED: PANTOPRAZOLE 40 MG TABLET PO SCH (09:00)
[2018-03-20 09:03] LABS: Calcium 6.1 MG/DL (8.5-10.1); Osmolality,Calculated 291.5 MOS/KG (273-304); Potassium 3.6 MMOL/L (3.5-5.1)
[2018-03-20] MEDS: HEPARIN LOCK FLUSH 500 UNIT/5 ML SYRINGE IV SCH (09:52)
[2018-03-20] MEDS ORDERED: GLUCAGON 1 MG VIAL IM PRN (10:27)
[2018-03-20] MEDS ORDERED: DEXTROSE 50% 25 GM/50 ML VIAL IV PRN (10:27)
[2018-03-20] MEDS ORDERED: LOPERAMIDE 2 MG CAPSULE PO ONE (11:00)
[2018-03-20] MEDS ORDERED: ACETAMINOPHEN 325 MG TABLET PO PRN (11:25)
[2018-03-20] MEDS ORDERED: DIPHENOXYLATE/ATROPINE 2.5-0.025 MG TABLET PO PRN (11:25)
[2018-03-20] MEDS ORDERED: MIDODRINE 5 MG TABLET PO SCH (11:30)
[2018-03-20] MEDS ORDERED: CALCIUM GLUCONATE 2,000 MG in SODIUM CHLORIDE 0.9% 100 ML IV ONE (14:30)
[2018-03-20 15:29] VITALS: BP 119/85
== END 2018-03-20 16:07 | disposition home health service (06) ==
LOC: N.2E → SUATTDRO 13:52
PROVIDERS: ADMIT Internal Medicine; ATTEND Internal Medicine Geriatric Medicine

== ENCOUNTER 2018-04-21 12:39 | Inpatient (IN) ==
[2018-04-21] MEDS ORDERED: LACTATED RINGERS 1,000 ML IV SCH (14:30)
[2018-04-21] MEDS ORDERED: ACETAMINOPHEN 325 MG TABLET PO PRN ×2 (14:42→16:46)
[2018-04-21] MEDS ORDERED: ONDANSETRON 4 MG/2 ML VIAL IV PRN (14:42)
[2018-04-21] MEDS ORDERED: DEXTROSE 50% 25 GM/50 ML VIAL IV PRN (14:42)
[2018-04-21] MEDS ORDERED: PROMETHAZINE 25 MG TABLET PO PRN (14:42)
[2018-04-21] MEDS ORDERED: GLUCAGON 1 MG VIAL IM PRN (14:42)
[2018-04-21 15:10] LABS: Basophils % 0.1 % (0.0-0.8); Eosinophils % 0.1 % (0.00-10.9); Hematocrit 31.3 VOL% (42.0-52.0); Hemoglobin 9.6 GM/DL (14.0-18.0); Immature Granulocytes % 0.7 %; Immature Granulocytes Absolute 0.12 #; Lymphocytes # 1.4 10*3/uL (1.4-4.0); Lymphocytes % 7.8 % (21.2-54.2); Mean Corpuscular HGB Conc 30.7 GM/DL (32-36); Mean Corpuscular Hemoglobin 28 PG (27-34); Mean Corpuscular Volume 92.3 FL (87-102); Mean Platelet Volume 11.7 FL (9.6-12.0); Monocytes # 0.5 10*3/uL (0.11-0.8); Monocytes % 2.8 % (1.7-12.7); NRBC # 0.02 10*3/uL; Neutrophils % 88.5 % (38.7-73.9); Platelet Count 254 T/CUMM (130-400); Red Blood Count 3.39 MC/CUMM (3.8-5.5); Red Cell Distribution Width 15.9 % (9.3-17.3); White Blood Count 18.1 T/CUMM (4-12)
[2018-04-21 15:58] LABS: Alanine Aminotransferase < 9 U/L (16-61); Alkaline Phosphatase 305 U/L (45-117); Aspartate Amino Transferase 12 U/L (0-37); Blood Urea Nitrogen 77 MG/DL (7-18); Glucose 113 MG/DL (74-106); Osmolality,Calculated 291.2 MOS/KG (273-304); Sodium 134 MMOL/L (136-145); Total Protein 7.1 G/DL (6.4-8.3)
[2018-04-21 16:03] LABS: Calcium 5.8 MG/DL (8.5-10.1); Potassium 2.3 MMOL/L (3.5-5.1)
[2018-04-21] MEDS ORDERED: DIPHENOXYLATE/ATROPINE 2.5-0.025 MG TABLET PO PRN (16:46)
[2018-04-21] MEDS ORDERED: ceFAZolin 1,000 MG in SYRINGE 1 EACH IV SCH (17:00)
[2018-04-21] MEDS ORDERED: CALCIUM GLUCONATE 2,000 MG in SODIUM CHLORIDE 0.9% 100 ML IV ONE (17:00)
[2018-04-21] MEDS: POTASSIUM CHLORIDE 20 MEQ TABLET PO SCH ×4 (17:12→23:30)
[2018-04-21] MEDS: MIDODRINE 5 MG TABLET PO SCH ×2 (17:12→23:30)
[2018-04-21] MEDS: INSULIN REGULAR 100 UNIT/ML SUBCUT SCH ×2 (17:49→21:38)
[2018-04-21] MEDS: PANTOPRAZOLE 40 MG TABLET PO SCH (21:39)
[2018-04-22] MEDS: MIDODRINE 5 MG TABLET PO SCH ×4 (05:10→18:21)
[2018-04-22] MEDS: ceFAZolin 1,000 MG in SYRINGE 1 EACH IV SCH ×2 (05:11→18:19)
[2018-04-22 05:25] LABS: Basophils % 0.1 % (0.0-0.8); Eosinophils # 0.1 10*3/uL (0.0-0.87); Eosinophils % 0.3 % (0.00-10.9); Hematocrit 29.9 VOL% (42.0-52.0); Hemoglobin 9.3 GM/DL (14.0-18.0); Immature Granulocytes % 1.1 %; Immature Granulocytes Absolute 0.23 #; Lymphocytes # 1.7 10*3/uL (1.4-4.0); Lymphocytes % 8.1 % (21.2-54.2); Mean Corpuscular HGB Conc 31.1 GM/DL (32-36); Mean Corpuscular Hemoglobin 28 PG (27-34); Mean Corpuscular Volume 91.4 FL (87-102); Mean Platelet Volume 12.2 FL (9.6-12.0); Monocytes # 0.7 10*3/uL (0.11-0.8); Monocytes % 3.2 % (1.7-12.7); NRBC # 0.03 10*3/uL; Neutrophils # 18.8 10*3/uL (1.4-7.4); Neutrophils % 87.2 % (38.7-73.9); Platelet Count 277 T/CUMM (130-400); Red Blood Count 3.27 MC/CUMM (3.8-5.5); Red Cell Distribution Width 15.9 % (9.3-17.3); White Blood Count 21.6 T/CUMM (4-12)
[2018-04-22 05:40] LABS: Calcium 6.2 MG/DL (8.5-10.1); Osmolality,Calculated 285.5 MOS/KG (273-304); Potassium 2.9 MMOL/L (3.5-5.1)
[2018-04-22 05:58] LABS: Lymphocytes 4 % (20-55); Platelet Estimate Normal; Polychromasia Few; Segmented Neutrophils 95 % (50-85); Total Cells Counted 100
[2018-04-22] MEDS: PANTOPRAZOLE 40 MG TABLET PO SCH ×2 (08:39→22:03)
[2018-04-22] MEDS: INSULIN REGULAR 100 UNIT/ML SUBCUT SCH ×4 (08:40→17:42)
[2018-04-22] MEDS: POTASSIUM CHLORIDE 20 MEQ TABLET PO SCH ×3 (11:27→17:00)
[2018-04-22] MEDS ORDERED: VANCOMYCIN INJ 1,000 MG in SODIUM CHLORIDE 0.9% 250 ML IV ONE (16:00)
[2018-04-23] MEDS: ceFAZolin 1,000 MG in SYRINGE 1 EACH IV SCH ×2 (05:11→16:44)
[2018-04-23 05:33] LABS: Calcium 6.8 MG/DL (8.5-10.1); Osmolality,Calculated 275.1 MOS/KG (273-304)
[2018-04-23] MEDS: MIDODRINE 5 MG TABLET PO SCH ×4 (07:11→23:45)
[2018-04-23] MEDS ORDERED: POTASSIUM CHLORIDE 20 MEQ TABLET PO ONE (07:16)
[2018-04-23] MEDS ORDERED: MORPHINE 4 MG/1 ML VIAL IV PRN (08:26)
[2018-04-23] MEDS ORDERED: ePHEDrine 50 MG/ML AMP ONE (08:46)
[2018-04-23] MEDS: INSULIN REGULAR 100 UNIT/ML SUBCUT SCH ×4 (08:50→22:57)
[2018-04-23] MEDS ORDERED: ePHEDrine 50 MG/ML AMP IV ONE (09:08)
[2018-04-23] MEDS ORDERED: SODIUM CHLORIDE 0.9% 250 ML IV ONE (10:23)
[2018-04-23] MEDS ORDERED: PROPOFOL 200 MG/20 ML VIAL IV ONE (12:51)
[2018-04-23] MEDS ORDERED: SEVOFLURANE 1 UNIT/15 MINUTE INH ONE (12:51)
[2018-04-23] MEDS ORDERED: PHENYLEPHRINE 1 MG/10 ML SYRINGE IV ONE (12:52)
[2018-04-23] MEDS ORDERED: fentaNYL 100 MCG/2 ML VIAL ONE (12:52)
[2018-04-23] MEDS ORDERED: MIDAZOLAM 2 MG/2 ML VIAL ONE (12:52)
[2018-04-23] MEDS: PANTOPRAZOLE 40 MG TABLET PO SCH ×2 (13:00→21:51)
[2018-04-24] MEDS: ceFAZolin 1,000 MG in SYRINGE 1 EACH IV SCH ×2 (05:05→17:48)
[2018-04-24] MEDS: MIDODRINE 5 MG TABLET PO SCH ×4 (05:05→17:49)
[2018-04-24 09:24] LABS: Calcium 6.6 MG/DL (8.5-10.1); Potassium 3.1 MMOL/L (3.5-5.1)
[2018-04-24] MEDS ORDERED: HEPARIN 10,000 UNIT/10 ML VIAL IV PRN (11:55)
[2018-04-24] MEDS: INSULIN REGULAR 100 UNIT/ML SUBCUT SCH ×4 (12:07→21:16)
[2018-04-24] MEDS: PANTOPRAZOLE 40 MG TABLET PO SCH ×2 (12:08→21:16)
[2018-04-24] MEDS: POTASSIUM CHLORIDE 20 MEQ TABLET PO SCH ×5 (17:49→21:16)
[2018-04-24] MEDS: MORPHINE 4 MG/1 ML VIAL IV PRN (21:15)
[2018-04-25] MEDS: MIDODRINE 5 MG TABLET PO SCH ×3 (01:35→12:29)
[2018-04-25] MEDS: MORPHINE 4 MG/1 ML VIAL IV PRN (06:15)
[2018-04-25] MEDS: ceFAZolin 1,000 MG in SYRINGE 1 EACH IV SCH ×2 (06:23→17:21)
[2018-04-25 06:57] LABS: Alanine Aminotransferase < 6 U/L (16-61); Albumin 1.7 G/DL (3.4-5.0); Alkaline Phosphatase 394 U/L (45-117); Aspartate Amino Transferase 27 U/L (0-37); Blood Urea Nitrogen 13 MG/DL (7-18); Calcium 7.1 MG/DL (8.5-10.1); Glucose 163 MG/DL (74-106); Osmolality,Calculated 276.8 MOS/KG (273-304); Potassium 3.8 MMOL/L (3.5-5.1); Sodium 137 MMOL/L (136-145); Total Protein 6.1 G/DL (6.4-8.3)
[2018-04-25 08:08] LABS: Basophils % 0.3 % (0.0-0.8); Eosinophils # 0.1 10*3/uL (0.0-0.87); Eosinophils % 0.9 % (0.00-10.9); Hematocrit 22.1 VOL% (42.0-52.0); Immature Granulocytes % 0.7 %; Immature Granulocytes Absolute 0.08 #; Lymphocytes % 9.2 % (21.2-54.2); Mean Corpuscular HGB Conc 29.4 GM/DL (32-36); Mean Corpuscular Hemoglobin 29 PG (27-34); Mean Corpuscular Volume 96.9 FL (87-102); Mean Platelet Volume 11.9 FL (9.6-12.0); Monocytes # 0.6 10*3/uL (0.11-0.8); Monocytes % 5.7 % (1.7-12.7); Neutrophils # 9.4 10*3/uL (1.4-7.4); Neutrophils % 83.2 % (38.7-73.9); Platelet Count 242 T/CUMM (130-400); Red Blood Count 2.28 MC/CUMM (3.8-5.5); Red Cell Distribution Width 16.6 % (9.3-17.3); White Blood Count 11.3 T/CUMM (4-12)
[2018-04-25 08:11] LABS: Hemoglobin 6.5 GM/DL (14.0-18.0)
[2018-04-25] MEDS: PANTOPRAZOLE 40 MG TABLET PO SCH (09:48)
[2018-04-25] MEDS ORDERED: SODIUM CHLORIDE 0.9% 1,000 ML IV PRN (10:49)
[2018-04-25] MEDS: INSULIN REGULAR 100 UNIT/ML SUBCUT SCH ×3 (10:51→16:51)
[2018-04-25 17:18] VITALS: BP 130/60
== END 2018-04-25 18:13 | disposition home or self-care (01) | DRG 255 ==
LOC: N.ED 12:39 → N.EDINP 14:42 → SUATTDRO 14:42 → N.5E 16:30
PROVIDERS: ADMIT Internal Medicine Geriatric Medicine; ATTEND Internal Medicine

== ENCOUNTER 2018-05-05 15:54 | Inpatient (IN) ==
[2018-05-05] MEDS ORDERED: GLUCAGON 1 MG VIAL IM PRN (19:14)
[2018-05-05] MEDS ORDERED: VANCOMYCIN INJ 500 MG in SODIUM CHLORIDE 0.9% 100 ML IV PRN (19:47)
[2018-05-05] MEDS ORDERED: CEFEPIME 1,000 MG in SYRINGE 1 EACH IV ONE (20:00)
[2018-05-05] MEDS ORDERED: VANCOMYCIN INJ 1,000 MG in SODIUM CHLORIDE 0.9% 250 ML IV ONE (21:00)
[2018-05-05] MEDS: POTASSIUM CHLORIDE 20 MEQ TABLET PO SCH ×2 (21:20→23:24)
[2018-05-05] MEDS: INSULIN REGULAR 100 UNIT/ML SUBCUT SCH (22:06)
[2018-05-06] MEDS: POTASSIUM CHLORIDE 20 MEQ TABLET PO SCH ×4 (02:47→16:44)
[2018-05-06 05:42] LABS: Basophils % 0.1 % (0.0-0.8); Eosinophils % 0.2 % (0.00-10.9); Hematocrit 22.5 VOL% (42.0-52.0); Hemoglobin 6.9 GM/DL (14.0-18.0); Immature Granulocytes % 0.9 %; Immature Granulocytes Absolute 0.22 #; Lymphocytes # 0.9 10*3/uL (1.4-4.0); Lymphocytes % 3.7 % (21.2-54.2); Mean Corpuscular HGB Conc 30.7 GM/DL (32-36); Mean Corpuscular Hemoglobin 30 PG (27-34); Mean Corpuscular Volume 97.4 FL (87-102); Monocytes # 0.9 10*3/uL (0.11-0.8); Monocytes % 3.7 % (1.7-12.7); NRBC # 0.03 10*3/uL; Neutrophils # 22.5 10*3/uL (1.4-7.4); Neutrophils % 91.4 % (38.7-73.9); Platelet Count 158 T/CUMM (130-400); Red Blood Count 2.31 MC/CUMM (3.8-5.5); Red Cell Distribution Width 18.1 % (9.3-17.3); White Blood Count 24.6 T/CUMM (4-12)
[2018-05-06 06:00] LABS: Calcium 7.1 MG/DL (8.5-10.1); Osmolality,Calculated 275.8 MOS/KG (273-304); Potassium 2.7 MMOL/L (3.5-5.1)
[2018-05-06 06:18] LABS: Band Neutrophils 1 % (0-10); Hypochromasia 1+; Lymphocytes 3 % (20-55); Platelet Estimate Normal; Segmented Neutrophils 93 % (50-85); Total Cells Counted 100
[2018-05-06] MEDS ORDERED: SODIUM CHLORIDE 0.9% 1,000 ML IV PRN ×2 (09:28)
[2018-05-06] MEDS: CLINDAMYCIN INJ 900 MG in PREMIX 1 EACH IV SCH ×3 (11:00→22:13)
[2018-05-06] MEDS: INSULIN REGULAR 100 UNIT/ML SUBCUT SCH ×4 (11:30→20:24)
[2018-05-06] MEDS ORDERED: HEPARIN 10,000 UNIT/10 ML VIAL IV SCH (11:30)
[2018-05-06 16:36] LABS: Calcium 7.2 MG/DL (8.5-10.1); Osmolality,Calculated 266.4 MOS/KG (273-304); Potassium 4.5 MMOL/L (3.5-5.1)
[2018-05-06] MEDS ORDERED: VANCOMYCIN INJ 500 MG in SODIUM CHLORIDE 0.9% 100 ML IV ONE (18:00)
[2018-05-06] MEDS: CEFEPIME 500 MG in SYRINGE 1 EACH IV SCH (22:08)
[2018-05-07] MEDS: CLINDAMYCIN INJ 900 MG in PREMIX 1 EACH IV SCH (04:47)
[2018-05-07 05:03] LABS: Basophils % 0.1 % (0.0-0.8); Eosinophils % 0.1 % (0.00-10.9); Hematocrit 26.6 VOL% (42.0-52.0); Hemoglobin 7.9 GM/DL (14.0-18.0); Immature Granulocytes Absolute 0.32 #; Lymphocytes # 1.1 10*3/uL (1.4-4.0); Lymphocytes % 3.5 % (21.2-54.2); Mean Corpuscular HGB Conc 29.7 GM/DL (32-36); Mean Corpuscular Hemoglobin 28 PG (27-34); Mean Corpuscular Volume 93.7 FL (87-102); Mean Platelet Volume 12.7 FL (9.6-12.0); Monocytes # 1.2 10*3/uL (0.11-0.8); Monocytes % 3.9 % (1.7-12.7); NRBC # 0.02 10*3/uL; Neutrophils # 28.8 10*3/uL (1.4-7.4); Neutrophils % 91.4 % (38.7-73.9); Platelet Count 132 T/CUMM (130-400); Red Blood Count 2.84 MC/CUMM (3.8-5.5); Red Cell Distribution Width 21.6 % (9.3-17.3); White Blood Count 31.6 T/CUMM (4-12)
[2018-05-07 05:40] LABS: Hypochromasia 1+; Lymphocytes 2 % (20-55); Ovalocytes Slight; Platelet Estimate Normal; Segmented Neutrophils 96 % (50-85); Total Cells Counted 100
[2018-05-07] MEDS ORDERED: SODIUM CHLORIDE 0.9% 1,000 ML IV PRN (08:06)
[2018-05-07] MEDS ORDERED: MORPHINE 4 MG/1 ML VIAL IV PRN (09:24)
[2018-05-07] MEDS ORDERED: ONDANSETRON 4 MG/2 ML VIAL IV PRN (09:24)
[2018-05-07] MEDS ORDERED: MAGNESIUM HYDROXIDE SUSP 30 ML UDCUP PO PRN (09:24)
[2018-05-07] MEDS ORDERED: fentaNYL 100 MCG/2 ML VIAL ONE ×2 (09:50→11:05)
[2018-05-07] MEDS ORDERED: fentaNYL 100 MCG/2 ML VIAL IV ONE ×3 (09:54→10:25)
[2018-05-07] MEDS: INSULIN REGULAR 100 UNIT/ML SUBCUT SCH ×4 (11:02→20:56)
[2018-05-07] MEDS ORDERED: SEVOFLURANE 1 UNIT/15 MINUTE INH ONE (11:05)
[2018-05-07] MEDS ORDERED: PROPOFOL 200 MG/20 ML VIAL IV ONE (11:05)
[2018-05-07] MEDS ORDERED: ONDANSETRON 4 MG/2 ML VIAL ONE (11:06)
[2018-05-07] MEDS ORDERED: SODIUM CHLORIDE 0.9% 250 ML IV ONE (11:06)
[2018-05-07] MEDS ORDERED: PHENYLEPHRINE 1 MG/10 ML SYRINGE IV ONE (11:06)
[2018-05-07] MEDS: SODIUM CHLORIDE 0.9% 1,000 ML IV SCH (11:37)
[2018-05-07] MEDS: MORPHINE 4 MG/1 ML VIAL IV PRN (11:50)
[2018-05-07 15:21] LABS: Basophils % 0.1 % (0.0-0.8); Hematocrit 29.1 VOL% (42.0-52.0); Hemoglobin 9.2 GM/DL (14.0-18.0); Immature Granulocytes % 1.3 %; Immature Granulocytes Absolute 0.35 #; Lymphocytes % 3.7 % (21.2-54.2); Mean Corpuscular HGB Conc 31.6 GM/DL (32-36); Mean Corpuscular Hemoglobin 28 PG (27-34); Mean Corpuscular Volume 88.7 FL (87-102); Mean Platelet Volume 12.5 FL (9.6-12.0); Monocytes # 0.9 10*3/uL (0.11-0.8); Monocytes % 3.4 % (1.7-12.7); NRBC # 0.04 10*3/uL; Neutrophils # 24.9 10*3/uL (1.4-7.4); Neutrophils % 91.5 % (38.7-73.9); Red Blood Count 3.28 MC/CUMM (3.8-5.5); White Blood Count 27.2 T/CUMM (4-12)
[2018-05-07 15:22] LABS: Platelet Count 95 T/CUMM (130-400)
[2018-05-07 15:40] LABS: Anisocytosis 1+; Lymphocytes 2 % (20-55); Macrocytosis 1+; Segmented Neutrophils 97 % (50-85); Total Cells Counted 100
[2018-05-07 15:41] LABS: Elliptocytes Few; Platelet Estimate Adequate; Polychromasia Slight; Target Cells Few
[2018-05-07] MEDS: MIDODRINE 5 MG TABLET PO SCH (17:39)
[2018-05-07] MEDS: CEFEPIME 500 MG in SYRINGE 1 EACH IV SCH (21:11)
[2018-05-08] MEDS: MIDODRINE 5 MG TABLET PO SCH ×4 (00:01→17:14)
[2018-05-08 06:10] LABS: Basophils % 0.1 % (0.0-0.8); Eosinophils # 0.1 10*3/uL (0.0-0.87); Eosinophils % 0.4 % (0.00-10.9); Hematocrit 23.9 VOL% (42.0-52.0); Hemoglobin 7.4 GM/DL (14.0-18.0); Immature Granulocytes % 1.1 %; Immature Granulocytes Absolute 0.26 #; Lymphocytes # 0.9 10*3/uL (1.4-4.0); Lymphocytes % 3.5 % (21.2-54.2); Mean Corpuscular Hemoglobin 28 PG (27-34); Mean Corpuscular Volume 89.2 FL (87-102); Mean Platelet Volume 12.6 FL (9.6-12.0); Monocytes # 1.2 10*3/uL (0.11-0.8); Monocytes % 4.7 % (1.7-12.7); NRBC # 0.03 10*3/uL; Neutrophils # 22.1 10*3/uL (1.4-7.4); Neutrophils % 90.2 % (38.7-73.9); Platelet Count 100 T/CUMM (130-400); Red Blood Count 2.68 MC/CUMM (3.8-5.5); Red Cell Distribution Width 19.5 % (9.3-17.3); White Blood Count 24.5 T/CUMM (4-12)
[2018-05-08 06:27] LABS: Calcium 6.8 MG/DL (8.5-10.1); Osmolality,Calculated 269.1 MOS/KG (273-304); Potassium 5.3 MMOL/L (3.5-5.1)
[2018-05-08 06:31] LABS: Hypochromasia 1+; Lymphocytes 1 % (20-55); Ovalocytes Slight; Platelet Estimate Decreased; Segmented Neutrophils 97 % (50-85); Total Cells Counted 100
[2018-05-08 06:32] LABS: Macrocytosis Slight
[2018-05-08] MEDS: INSULIN REGULAR 100 UNIT/ML SUBCUT SCH ×4 (08:37→22:42)
[2018-05-08] MEDS: SODIUM CHLORIDE 0.9% 1,000 ML IV SCH (10:23)
[2018-05-08] MEDS: MORPHINE 4 MG/1 ML VIAL IV PRN (20:28)
[2018-05-08] MEDS: CEFEPIME 500 MG in SYRINGE 1 EACH IV SCH (20:33)
[2018-05-09] MEDS: MIDODRINE 5 MG TABLET PO SCH ×4 (03:42→17:51)
[2018-05-09] MEDS: MORPHINE 4 MG/1 ML VIAL IV PRN ×4 (07:17→20:10)
[2018-05-09 07:52] LABS: Basophils % 0.1 % (0.0-0.8); Eosinophils # 0.1 10*3/uL (0.0-0.87); Eosinophils % 0.3 % (0.00-10.9); Hemoglobin 7.4 GM/DL (14.0-18.0); Immature Granulocytes % 1.3 %; Lymphocytes # 0.8 10*3/uL (1.4-4.0); Lymphocytes % 2.5 % (21.2-54.2); Mean Corpuscular HGB Conc 30.8 GM/DL (32-36); Mean Corpuscular Hemoglobin 28 PG (27-34); Mean Corpuscular Volume 89.9 FL (87-102); Monocytes # 1.3 10*3/uL (0.11-0.8); Monocytes % 4.3 % (1.7-12.7); NRBC # 0.02 10*3/uL; Neutrophils # 27.9 10*3/uL (1.4-7.4); Neutrophils % 91.5 % (38.7-73.9); Platelet Count 104 T/CUMM (130-400); Red Blood Count 2.67 MC/CUMM (3.8-5.5); Red Cell Distribution Width 19.9 % (9.3-17.3); White Blood Count 30.5 T/CUMM (4-12)
[2018-05-09 08:15] LABS: Anisocytosis 1+; Band Neutrophils 3 % (0-10); Lymphocytes 2 % (20-55); Platelet Estimate Adequate; Poikilocytosis Slight; Segmented Neutrophils 88 % (50-85); Total Cells Counted 100
[2018-05-09 08:16] LABS: Hypochromasia Slight
[2018-05-09 08:22] LABS: Calcium 6.7 MG/DL (8.5-10.1); Osmolality,Calculated 268.4 MOS/KG (273-304); Potassium 5.4 MMOL/L (3.5-5.1)
[2018-05-09] MEDS ORDERED: SODIUM CHLORIDE 0.9% 1,000 ML IV PRN (08:55)
[2018-05-09] MEDS: INSULIN REGULAR 100 UNIT/ML SUBCUT SCH ×4 (09:01→20:10)
[2018-05-09] MEDS: CEFEPIME 500 MG in SYRINGE 1 EACH IV SCH (23:45)
[2018-05-10] MEDS: MIDODRINE 5 MG TABLET PO SCH ×4 (02:00→17:50)
[2018-05-10 07:02] LABS: Calcium 6.3 MG/DL (8.5-10.1); Osmolality,Calculated 267.2 MOS/KG (273-304); Potassium 4.9 MMOL/L (3.5-5.1)
[2018-05-10 07:34] LABS: Basophils % 0.1 % (0.0-0.8); Eosinophils # 0.1 10*3/uL (0.0-0.87); Eosinophils % 0.5 % (0.00-10.9); Hematocrit 24.9 VOL% (42.0-52.0); Immature Granulocytes % 1.5 %; Immature Granulocytes Absolute 0.28 #; Lymphocytes # 0.9 10*3/uL (1.4-4.0); Mean Corpuscular HGB Conc 32.1 GM/DL (32-36); Mean Corpuscular Hemoglobin 29 PG (27-34); Mean Corpuscular Volume 89.2 FL (87-102); Mean Platelet Volume 12.9 FL (9.6-12.0); Monocytes # 1.4 10*3/uL (0.11-0.8); Monocytes % 7.7 % (1.7-12.7); Neutrophils % 85.2 % (38.7-73.9); Red Blood Count 2.79 MC/CUMM (3.8-5.5); Red Cell Distribution Width 18.6 % (9.3-17.3); White Blood Count 18.8 T/CUMM (4-12)
[2018-05-10 07:35] LABS: Platelet Count 96 T/CUMM (130-400)
[2018-05-10 07:56] LABS: Hypochromasia 1+; Ovalocytes Slight; Platelet Estimate Decreased
[2018-05-10] MEDS: INSULIN REGULAR 100 UNIT/ML SUBCUT SCH ×4 (08:19→22:26)
[2018-05-10] MEDS: CEFEPIME 500 MG in SYRINGE 1 EACH IV SCH (22:30)
[2018-05-11] MEDS: DEXTROSE 50% 25 GM/50 ML VIAL IV PRN ×2 (01:31→02:33)
[2018-05-11] MEDS: MIDODRINE 5 MG TABLET PO SCH ×5 (02:39→23:39)
[2018-05-11] MEDS ORDERED: DEXTROSE 50% 25 GM/50 ML SYRINGE IV PRN (03:00)
[2018-05-11] MEDS: INSULIN REGULAR 100 UNIT/ML SUBCUT SCH ×2 (07:30→10:56)
[2018-05-11] MEDS ORDERED: GLUCAGON 1 MG VIAL IM PRN (13:38)
[2018-05-11] MEDS ORDERED: DEXTROSE 50% 25 GM/50 ML VIAL IV PRN (13:38)
[2018-05-11] MEDS: INSULIN LISPRO 100 UNIT/ML SUBCUT SCH (19:17)
[2018-05-11] MEDS: CEFEPIME 500 MG in SYRINGE 1 EACH IV SCH (21:34)
[2018-05-12] MEDS: MIDODRINE 5 MG TABLET PO SCH ×3 (05:36→17:23)
[2018-05-12 06:15] LABS: Eosinophils # 0.1 10*3/uL (0.0-0.87); Eosinophils % 1.2 % (0.00-10.9); Hematocrit 25.2 VOL% (42.0-52.0); Hemoglobin 7.9 GM/DL (14.0-18.0); Immature Granulocytes % 1.3 %; Immature Granulocytes Absolute 0.13 #; Lymphocytes # 0.9 10*3/uL (1.4-4.0); Lymphocytes % 8.5 % (21.2-54.2); Mean Corpuscular HGB Conc 31.3 GM/DL (32-36); Mean Corpuscular Hemoglobin 29 PG (27-34); Mean Corpuscular Volume 91.6 FL (87-102); Mean Platelet Volume 12.8 FL (9.6-12.0); Monocytes # 0.8 10*3/uL (0.11-0.8); Monocytes % 7.9 % (1.7-12.7); Neutrophils # 8.1 10*3/uL (1.4-7.4); Neutrophils % 81.1 % (38.7-73.9); Platelet Count 115 T/CUMM (130-400); Red Blood Count 2.75 MC/CUMM (3.8-5.5)
[2018-05-12 06:40] LABS: Calcium 6.8 MG/DL (8.5-10.1); Osmolality,Calculated 269.2 MOS/KG (273-304); Potassium 3.7 MMOL/L (3.5-5.1)
[2018-05-12] MEDS: INSULIN LISPRO 100 UNIT/ML SUBCUT SCH ×2 (09:22→17:24)
[2018-05-12] MEDS: MORPHINE 4 MG/1 ML VIAL IV PRN (20:03)
[2018-05-12] MEDS: CEFEPIME 500 MG in SYRINGE 1 EACH IV SCH (20:03)
[2018-05-13] MEDS: MORPHINE 4 MG/1 ML VIAL IV PRN ×4 (00:23→20:14)
[2018-05-13] MEDS: MIDODRINE 5 MG TABLET PO SCH ×4 (00:23→17:35)
[2018-05-13] MEDS: INSULIN LISPRO 100 UNIT/ML SUBCUT SCH ×2 (07:55→17:34)
[2018-05-13 08:35] LABS: Basophils % 0.3 % (0.0-0.8); Eosinophils # 0.1 10*3/uL (0.0-0.87); Eosinophils % 1.8 % (0.00-10.9); Hematocrit 25.9 VOL% (42.0-52.0); Hemoglobin 8.1 GM/DL (14.0-18.0); Immature Granulocytes % 0.9 %; Immature Granulocytes Absolute 0.06 #; Lymphocytes # 0.7 10*3/uL (1.4-4.0); Lymphocytes % 10.2 % (21.2-54.2); Mean Corpuscular HGB Conc 31.3 GM/DL (32-36); Mean Corpuscular Hemoglobin 29 PG (27-34); Mean Corpuscular Volume 92.2 FL (87-102); Monocytes # 0.6 10*3/uL (0.11-0.8); Monocytes % 8.9 % (1.7-12.7); Neutrophils # 5.5 10*3/uL (1.4-7.4); Neutrophils % 77.9 % (38.7-73.9); Platelet Count 124 T/CUMM (130-400); Red Blood Count 2.81 MC/CUMM (3.8-5.5); Red Cell Distribution Width 18.9 % (9.3-17.3)
[2018-05-13 08:58] LABS: Calcium 6.7 MG/DL (8.5-10.1); Osmolality,Calculated 269.5 MOS/KG (273-304); Potassium 4.1 MMOL/L (3.5-5.1)
[2018-05-13] MEDS: CALCIUM GLUCONATE 2,000 MG in SODIUM CHLORIDE 0.9% 100 ML IV PRN (14:21)
[2018-05-13] MEDS: CEFEPIME 500 MG in SYRINGE 1 EACH IV SCH (20:10)
[2018-05-14] MEDS: MORPHINE 4 MG/1 ML VIAL IV PRN ×2 (00:18→04:40)
[2018-05-14] MEDS: MIDODRINE 5 MG TABLET PO SCH ×5 (01:06→23:19)
[2018-05-14 06:00] LABS: Basophils % 0.2 % (0.0-0.8); Eosinophils # 0.1 10*3/uL (0.0-0.87); Eosinophils % 1.5 % (0.00-10.9); Hematocrit 23.9 VOL% (42.0-52.0); Hemoglobin 7.4 GM/DL (14.0-18.0); Immature Granulocytes % 0.7 %; Immature Granulocytes Absolute 0.06 #; Mean Corpuscular Hemoglobin 29 PG (27-34); Mean Corpuscular Volume 91.9 FL (87-102); Mean Platelet Volume 12.8 FL (9.6-12.0); Monocytes # 0.7 10*3/uL (0.11-0.8); Monocytes % 8.5 % (1.7-12.7); Neutrophils # 6.7 10*3/uL (1.4-7.4); Neutrophils % 78.1 % (38.7-73.9); Platelet Count 119 T/CUMM (130-400); Red Cell Distribution Width 19.2 % (9.3-17.3); White Blood Count 8.6 T/CUMM (4-12)
[2018-05-14 06:16] LABS: Calcium 6.9 MG/DL (8.5-10.1); Potassium 3.4 MMOL/L (3.5-5.1)
[2018-05-14] MEDS: CALCIUM GLUCONATE 2,000 MG in SODIUM CHLORIDE 0.9% 100 ML IV PRN (08:55)
[2018-05-14] MEDS: INSULIN LISPRO 100 UNIT/ML SUBCUT SCH ×2 (09:11→17:13)
[2018-05-15] MEDS: MIDODRINE 5 MG TABLET PO SCH ×4 (06:48→23:18)
[2018-05-15 07:19] LABS: Basophils % 0.3 % (0.0-0.8); Eosinophils # 0.2 10*3/uL (0.0-0.87); Eosinophils % 1.6 % (0.00-10.9); Hematocrit 24.2 VOL% (42.0-52.0); Hemoglobin 7.6 GM/DL (14.0-18.0); Immature Granulocytes Absolute 0.09 #; Lymphocytes % 10.5 % (21.2-54.2); Mean Corpuscular HGB Conc 31.4 GM/DL (32-36); Mean Corpuscular Hemoglobin 29 PG (27-34); Mean Platelet Volume 12.2 FL (9.6-12.0); Monocytes # 0.6 10*3/uL (0.11-0.8); Monocytes % 6.1 % (1.7-12.7); Neutrophils # 7.4 10*3/uL (1.4-7.4); Neutrophils % 80.5 % (38.7-73.9); Platelet Count 156 T/CUMM (130-400); Red Blood Count 2.63 MC/CUMM (3.8-5.5); Red Cell Distribution Width 19.4 % (9.3-17.3); White Blood Count 9.2 T/CUMM (4-12)
[2018-05-15 07:42] LABS: Calcium 7.1 MG/DL (8.5-10.1); Osmolality,Calculated 266.4 MOS/KG (273-304); Potassium 3.6 MMOL/L (3.5-5.1)
[2018-05-15] MEDS: INSULIN LISPRO 100 UNIT/ML SUBCUT SCH ×2 (08:14→17:42)
[2018-05-15] MEDS: SODIUM HYPOCHLORITE 0.25% IRRIG 473 ML BOTTLE TOP SCH (12:59)
[2018-05-16] MEDS: SODIUM HYPOCHLORITE 0.25% IRRIG 473 ML BOTTLE TOP SCH ×3 (00:10→23:31)
[2018-05-16] MEDS: MIDODRINE 5 MG TABLET PO SCH ×3 (05:41→18:38)
[2018-05-16 05:48] LABS: Basophils % 0.3 % (0.0-0.8); Eosinophils # 0.1 10*3/uL (0.0-0.87); Eosinophils % 1.1 % (0.00-10.9); Hematocrit 24.8 VOL% (42.0-52.0); Hemoglobin 7.8 GM/DL (14.0-18.0); Immature Granulocytes % 0.7 %; Immature Granulocytes Absolute 0.07 #; Lymphocytes # 0.9 10*3/uL (1.4-4.0); Lymphocytes % 9.8 % (21.2-54.2); Mean Corpuscular HGB Conc 31.5 GM/DL (32-36); Mean Corpuscular Hemoglobin 29 PG (27-34); Mean Corpuscular Volume 92.2 FL (87-102); Mean Platelet Volume 12.6 FL (9.6-12.0); Monocytes # 0.5 10*3/uL (0.11-0.8); Monocytes % 5.4 % (1.7-12.7); Neutrophils # 7.8 10*3/uL (1.4-7.4); Neutrophils % 82.7 % (38.7-73.9); Platelet Count 161 T/CUMM (130-400); Red Blood Count 2.69 MC/CUMM (3.8-5.5); Red Cell Distribution Width 19.4 % (9.3-17.3); White Blood Count 9.5 T/CUMM (4-12)
[2018-05-16 06:02] LABS: Albumin 1.2 G/DL (3.4-5.0); Calcium 6.8 MG/DL (8.5-10.1); Osmolality,Calculated 264.5 MOS/KG (273-304); Potassium 4.1 MMOL/L (3.5-5.1)
[2018-05-16] MEDS: INSULIN LISPRO 100 UNIT/ML SUBCUT SCH ×2 (07:23→17:04)
[2018-05-17] MEDS: MIDODRINE 5 MG TABLET PO SCH ×4 (01:26→17:14)
[2018-05-17] MEDS: INSULIN LISPRO 100 UNIT/ML SUBCUT SCH ×2 (08:20→16:20)
[2018-05-17] MEDS ORDERED: LIDOCAINE 1% 20 ML VIAL ONE (08:46)
[2018-05-17] MEDS ORDERED: ceFAZolin 2,000 MG in SYRINGE 1 EACH IV ONE (09:00)
[2018-05-17 09:28] LABS: Hematocrit 24.1 VOL% (42.0-52.0); Hemoglobin 7.5 GM/DL (14.0-18.0)
[2018-05-17] MEDS ORDERED: PROPOFOL 200 MG/20 ML VIAL IV ONE (10:48)
[2018-05-17] MEDS ORDERED: fentaNYL 100 MCG/2 ML VIAL ONE (10:49)
[2018-05-17] MEDS ORDERED: SEVOFLURANE 1 UNIT/15 MINUTE INH ONE (10:49)
[2018-05-17] MEDS ORDERED: DEXAMETHASONE 10 MG/1 ML VIAL ONE (10:50)
[2018-05-17] MEDS ORDERED: PHENYLEPHRINE 1 MG/10 ML SYRINGE IV ONE (10:50)
[2018-05-17] MEDS ORDERED: ONDANSETRON 4 MG/2 ML VIAL ONE (10:50)
[2018-05-17] MEDS ORDERED: MIDAZOLAM 2 MG/2 ML VIAL ONE (10:50)
[2018-05-17] MEDS: SODIUM HYPOCHLORITE 0.25% IRRIG 473 ML BOTTLE TOP SCH ×2 (11:50→20:55)
[2018-05-18] MEDS: MIDODRINE 5 MG TABLET PO SCH ×5 (00:47→18:00)
[2018-05-18] MEDS: INSULIN LISPRO 100 UNIT/ML SUBCUT SCH ×2 (09:33→18:00)
[2018-05-18] MEDS: SODIUM HYPOCHLORITE 0.25% IRRIG 473 ML BOTTLE TOP SCH (09:33)
[2018-05-18 09:47] LABS: Hematocrit 22.6 VOL% (42.0-52.0)
[2018-05-18] MEDS ORDERED: SODIUM CHLORIDE 0.9% 1,000 ML IV PRN (15:20)
[2018-05-18] MEDS: ceFAZolin 1,000 MG in SYRINGE 1 EACH IV SCH (16:20)
[2018-05-19] MEDS: MIDODRINE 5 MG TABLET PO SCH ×5 (03:00→18:04)
[2018-05-19] MEDS: SODIUM HYPOCHLORITE 0.25% IRRIG 473 ML BOTTLE TOP SCH ×3 (03:41→20:49)
[2018-05-19 04:57] LABS: Hematocrit 32.3 VOL% (42.0-52.0); Hemoglobin 10.7 GM/DL (14.0-18.0); Immature Granulocytes % 0.7 %; Immature Granulocytes Absolute 0.08 #; Lymphocytes # 0.9 10*3/uL (1.4-4.0); Lymphocytes % 8.3 % (21.2-54.2); Mean Corpuscular HGB Conc 33.1 GM/DL (32-36); Mean Corpuscular Hemoglobin 30 PG (27-34); Mean Corpuscular Volume 91.2 FL (87-102); Mean Platelet Volume 11.9 FL (9.6-12.0); Monocytes # 0.5 10*3/uL (0.11-0.8); Monocytes % 4.8 % (1.7-12.7); Neutrophils # 9.7 10*3/uL (1.4-7.4); Neutrophils % 86.2 % (38.7-73.9); Platelet Count 167 T/CUMM (130-400); Red Blood Count 3.54 MC/CUMM (3.8-5.5); Red Cell Distribution Width 16.9 % (9.3-17.3); White Blood Count 11.2 T/CUMM (4-12)
[2018-05-19 05:16] LABS: Calcium 7.1 MG/DL (8.5-10.1); Osmolality,Calculated 266.2 MOS/KG (273-304); Potassium 3.6 MMOL/L (3.5-5.1)
[2018-05-19] MEDS: INSULIN LISPRO 100 UNIT/ML SUBCUT SCH ×2 (09:00→18:05)
[2018-05-19] MEDS: ACETAMINOPHEN 325 MG TABLET PO PRN (09:39)
[2018-05-19] MEDS: SILVER SULFADIAZINE 1% CREAM 25 GM TUBE TOP SCH (14:00)
[2018-05-20] MEDS: MIDODRINE 5 MG TABLET PO SCH ×5 (01:38→23:21)
[2018-05-20 05:54] LABS: Basophils % 0.1 % (0.0-0.8); Eosinophils % 0.1 % (0.00-10.9); Hematocrit 31.4 VOL% (42.0-52.0); Hemoglobin 10.1 GM/DL (14.0-18.0); Immature Granulocytes % 0.6 %; Immature Granulocytes Absolute 0.06 #; Lymphocytes # 1.2 10*3/uL (1.4-4.0); Lymphocytes % 12.9 % (21.2-54.2); Mean Corpuscular HGB Conc 32.2 GM/DL (32-36); Mean Corpuscular Hemoglobin 30 PG (27-34); Mean Corpuscular Volume 92.4 FL (87-102); Mean Platelet Volume 11.5 FL (9.6-12.0); Monocytes # 0.6 10*3/uL (0.11-0.8); Neutrophils # 7.6 10*3/uL (1.4-7.4); Neutrophils % 80.3 % (38.7-73.9); Platelet Count 150 T/CUMM (130-400); Red Cell Distribution Width 17.4 % (9.3-17.3); White Blood Count 9.4 T/CUMM (4-12)
[2018-05-20 06:11] LABS: Calcium 6.7 MG/DL (8.5-10.1); Osmolality,Calculated 269.4 MOS/KG (273-304); Potassium 3.5 MMOL/L (3.5-5.1)
[2018-05-20] MEDS: ceFAZolin 1,000 MG in SYRINGE 1 EACH IV SCH (12:54)
[2018-05-20] MEDS: ACETAMINOPHEN 325 MG TABLET PO PRN (15:57)
[2018-05-20] MEDS: INSULIN LISPRO 100 UNIT/ML SUBCUT SCH ×2 (17:00→19:01)
[2018-05-20] MEDS: SODIUM HYPOCHLORITE 0.25% IRRIG 473 ML BOTTLE TOP SCH ×2 (19:01→22:44)
[2018-05-20] MEDS: SILVER SULFADIAZINE 1% CREAM 25 GM TUBE TOP SCH (19:01)
[2018-05-21] MEDS: MIDODRINE 5 MG TABLET PO SCH ×4 (05:01→23:35)
[2018-05-21 06:17] LABS: Basophils % 0.1 % (0.0-0.8); Eosinophils % 0.4 % (0.00-10.9); Hemoglobin 10.4 GM/DL (14.0-18.0); Immature Granulocytes % 0.6 %; Immature Granulocytes Absolute 0.05 #; Lymphocytes # 1.2 10*3/uL (1.4-4.0); Mean Corpuscular HGB Conc 32.5 GM/DL (32-36); Mean Corpuscular Hemoglobin 30 PG (27-34); Mean Corpuscular Volume 93.3 FL (87-102); Mean Platelet Volume 11.6 FL (9.6-12.0); Monocytes # 0.5 10*3/uL (0.11-0.8); Monocytes % 5.8 % (1.7-12.7); Neutrophils # 7.2 10*3/uL (1.4-7.4); Neutrophils % 80.1 % (38.7-73.9); Platelet Count 137 T/CUMM (130-400); Red Blood Count 3.43 MC/CUMM (3.8-5.5); Red Cell Distribution Width 17.4 % (9.3-17.3)
[2018-05-21 06:33] LABS: Calcium 6.9 MG/DL (8.5-10.1); Osmolality,Calculated 271.8 MOS/KG (273-304); Potassium 3.4 MMOL/L (3.5-5.1)
[2018-05-21] MEDS: INSULIN LISPRO 100 UNIT/ML SUBCUT SCH ×2 (08:25→21:48)
[2018-05-21] MEDS: ACETAMINOPHEN 325 MG TABLET PO PRN (11:00)
[2018-05-21] MEDS: SODIUM HYPOCHLORITE 0.25% IRRIG 473 ML BOTTLE TOP SCH ×2 (15:34→21:49)
[2018-05-21] MEDS: SILVER SULFADIAZINE 1% CREAM 25 GM TUBE TOP SCH (15:34)
[2018-05-21] MEDS: SULFAMETHOX/TRIMETHOPRIM 800-160 MG TABLET PO SCH (20:02)
[2018-05-22 05:45] LABS: Calcium 6.8 MG/DL (8.5-10.1); Osmolality,Calculated 267.4 MOS/KG (273-304); Potassium 3.6 MMOL/L (3.5-5.1)
[2018-05-22] MEDS: MIDODRINE 5 MG TABLET PO SCH ×3 (06:52→17:21)
[2018-05-22] MEDS: SULFAMETHOX/TRIMETHOPRIM 800-160 MG TABLET PO SCH ×2 (07:51→10:45)
[2018-05-22] MEDS ORDERED: LINEZOLID INJ 600 MG in PREMIX 1 EACH IV SCH (10:30)
[2018-05-22] MEDS: INSULIN LISPRO 100 UNIT/ML SUBCUT SCH ×2 (10:45→17:38)
[2018-05-22] MEDS ORDERED: LEVOFLOXACIN INJ 500 MG in PREMIX 1 EACH IV SCH (11:00)
[2018-05-22] MEDS: LINEZOLID 600 MG TABLET PO SCH ×2 (12:26→21:39)
[2018-05-22] MEDS ORDERED: SULFAMETHOX/TRIMETHOPRIM 400-80 MG TABLET PO SCH (17:00)
[2018-05-22] MEDS: SODIUM HYPOCHLORITE 0.25% IRRIG 473 ML BOTTLE TOP SCH ×2 (17:38→21:36)
[2018-05-23] MEDS: MIDODRINE 5 MG TABLET PO SCH ×3 (01:31→11:27)
[2018-05-23] MEDS: LINEZOLID 600 MG TABLET PO SCH (08:38)
[2018-05-23] MEDS: INSULIN LISPRO 100 UNIT/ML SUBCUT SCH (08:39)
[2018-05-23] MEDS: ACETAMINOPHEN 325 MG TABLET PO PRN (08:39)
[2018-05-23 10:20] LABS: Basophils % 0.3 % (0.0-0.8); Eosinophils # 0.1 10*3/uL (0.0-0.87); Eosinophils % 0.9 % (0.00-10.9); Hematocrit 32.2 VOL% (42.0-52.0); Hemoglobin 10.1 GM/DL (14.0-18.0); Immature Granulocytes % 0.4 %; Immature Granulocytes Absolute 0.03 #; Lymphocytes # 0.9 10*3/uL (1.4-4.0); Lymphocytes % 13.1 % (21.2-54.2); Mean Corpuscular HGB Conc 31.4 GM/DL (32-36); Mean Corpuscular Hemoglobin 30 PG (27-34); Mean Corpuscular Volume 95.3 FL (87-102); Mean Platelet Volume 11.1 FL (9.6-12.0); Monocytes # 0.2 10*3/uL (0.11-0.8); Monocytes % 2.5 % (1.7-12.7); Neutrophils # 5.5 10*3/uL (1.4-7.4); Neutrophils % 82.8 % (38.7-73.9); Platelet Count 159 T/CUMM (130-400); Red Blood Count 3.38 MC/CUMM (3.8-5.5); Red Cell Distribution Width 17.2 % (9.3-17.3); White Blood Count 6.7 T/CUMM (4-12)
[2018-05-23 10:47] LABS: Calcium 6.8 MG/DL (8.5-10.1); Osmolality,Calculated 269.1 MOS/KG (273-304); Potassium 3.4 MMOL/L (3.5-5.1)
[2018-05-23 14:27] VITALS: BP 114/73
== END 2018-05-23 15:50 | DRG 315 ==
LOC: N.5E 17:48 → SUATTDRO 17:48 → N.CC 05-07 11:01 → N.5E 05-07 17:31
PROVIDERS: ADMIT Internal Medicine; ATTEND Internal Medicine